=== PATIENT | male | born 1980 | race Caucasian/White ===

== ENCOUNTER 2017-01-05 05:18 | Emergency (ER) | payer MEDICARE, MEDICAID ==
[2017-01-05] MEDS ORDERED: Ondansetron INJ* 2 MG/ML VIAL IV ONE (05:41)
[2017-01-05] MEDS ORDERED: Morphine INJ* 4 MG/ML 1 ML CARPUJECT IV ONE (05:41)
[2017-01-05] MEDS ORDERED: NS 0.9% 1000 ML* 1,000 ML IV ONE (05:41)
[2017-01-05] MEDS: NS 0.9% 1000 ML* 1,000 ML IV ONE ×2 (06:08→07:00)
[2017-01-05 06:22] LABS: Hematocrit 47 % (42-52); Hemoglobin 15.9 g/dl (14.0-18.0); Mean Corpuscular HGB Conc 34 g/dl (31-36); Mean Corpuscular Hemoglobin 32 pg (27-31); Mean Corpuscular Volume 94 fL (80-94); Mean Platelet Volume 8 um3 (7.4-10.4); Red Blood Count 4.99 10^6/ul (4.0-5.4); Red Cell Distribution Width 15 % (10.5-15); White Blood Count 12.1 10^3/ul (3.5-10.8)
[2017-01-05 06:39] LABS: Albumin 4.4 g/dL (3.2-5.2); BUN/Creatinine Ratio 26.1 (8-20); Calcium 9.7 mg/dL (8.6-10.3); Globulin 2.8 g/dL (2-4); Potassium 4.1 mmol/L (3.5-5.0); Total Bilirubin 0.5 mg/dL (0.2-1.0); Total Protein 7.2 g/dL (6.4-8.9)
[2017-01-05 06:42] LABS: Urine Bilirubin Negative (Negative); Urine Glucose Negative (Negative); Urine Nitrite Negative (Negative)
--- NOTE | 2017-01-05 06:44 | ED ---
Eliezer Li Salem, scribed for Afshin Merchant on 01/05/17 at 0602 . Abdominal Pain/Male - HPI Summary HPI Summary: Patient is a 36 y/o male who presents to the ED for abdominal pain in LLQ since yesterday. He reports vomiting (around 5 times) and diarrhea (3-4 times) this morning. He describes his sx as similar to those he experienced when he had a bacterial infection 3 months ago. PMHx significant for renal calculi. Pt smokes Tobacco and THC, but does not consume EtOH. - History of Current Complaint Chief Complaint: EDNauseaVomitDiarrh Stated Complaint: VOMITING/DIARRHEA Time Seen by Provider: 01/05/17 05:37 Hx Obtained From: Patient Onset/Duration: Gradual Onset, Lasting Hours Severity Initially: Moderate Severity Currently: Moderate Pain Intensity: 8 Pain Scale Used: 0-10 Numeric Location: Discrete At: LLQ Aggravating Factor(s): Nothing Alleviating Factor(s): Nothing Associated Signs And Symptoms: Positive: Vomiting, Diarrhea - Allergies/Home Medications Allergies/Adverse Reactions: Allergies Allergy/AdvReac Type Severity Reaction Status Date / Time Penicillins [PCN] Allergy Rash And Verified 01/05/17 05:25 Itching PMH/Surg Hx/FS Hx/Imm Hx History: Reports: Hx Kidney Stones Infectious Disease History: No Infectious Disease History: Denies: Traveled Outside the [place] in Last 30 Days - Family History Known Family History: Negative: Hypertension, Diabetes - Social History Alcohol Use: None Hx Substance Use: Yes Substance Use Type: Reports: Marijuana Hx Tobacco Use: Yes Review of Systems Negative: Fever Positive: Abdominal Pain, Vomiting, Diarrhea All Other Systems Reviewed And Are Negative: Yes Physical Exam Triage Information Reviewed: Yes Vital Signs On Initial Exam: Initial Vitals Temp Pulse Resp BP Pulse Ox 98.2 F 82 16 145/96 100 01/05/17 05:20 01/05/17 05:20 01/05/17 05:20 01/05/17 05:20 01/05/17 05:20 Vital Signs Reviewed: Yes Appearance: Positive: Well-Appearing, No Pain Distress Skin: Positive: Warm, Skin Color Reflects Adequate Perfusion, Dry Head/Face: Positive: Normal Head/Face Inspection Eyes: Positive: EOMI, BY[place] Neck: Positive: Supple, Nontender Respiratory/Lung Sounds: Positive: Clear to Auscultation, Breath Sounds Present Cardiovascular: Positive: RRR, Pulses are Symmetrical in both Upper and Lower Extremities Abdomen Description: Positive: Other: - LLQ tenderness. Bowel Sounds: Positive: Present Musculoskeletal: Positive: Normal, Strength/ROM Intact Neurological: Positive: Normal, Sensory/Motor Intact, Alert, Oriented to Person Place, Time Diagnostics - Vital Signs Vital Signs Temp Pulse Resp BP Pulse Ox 01/05/17 05:20 98.2 F 82 16 145/96 100 - Laboratory Lab Results: Lab Results 01/05/17 01/05/17 01/05/17 Range/Units 06:00 06:00 06:00 WBC 12.1 H (3.5-10.8) 10^3/ul RBC 4.99 (4.0-5.4) 10^6/ul Hgb 15.9 (14.0-18.0) g/dl Hct 47 (42-52) % MCV 94 (80-94) fL MCH 32 H (27-31) pg MCHC 34 (31-36) g/dl RDW 15 (10.5-15) % Plt Count 209 (150-450) 10^3/ul MPV 8 (7.4-10.4) um3 Neut % (Auto) 72.9 (38-83) % Lymph % (Auto) 14.0 L (25-47) % [place] % (Auto) 10.5 H (1-9) % Eos % (Auto) 2.2 (0-6) % Baso % (Auto) 0.4 (0-2) % Absolute Neuts (auto) 8.8 H (1.5-7.7) 10^3/ul Absolute Lymphs (auto) 1.7 (1.0-4.8) 10^3/ul Absolute Monos (auto) 1.3 H (0-0.8) 10^3/ul Absolute Eos (auto) 0.3 (0-0.6) 10^3/ul Absolute Basos (auto) 0 (0-0.2) 10^3/ul Absolute Nucleated RBC 0 10^3/ul Nucleated RBC % 0 INR (Anticoag Therapy) 0.87 L (0.89-1.11) APTT 29.2 (26.0-36.3) seconds Sodium 137 (133-145) mmol/L Potassium 4.1 (3.5-5.0) mmol/L Chloride 105 (101-111) mmol/L Carbon Dioxide 24 (22-32) mmol/L Anion Gap 8 (2-11) mmol/L BUN 23 (6-24) mg/dL Creatinine 0.88 (0.67-1.17) mg/dL Est GFR ( Amer) 126.0 (>60) Est GFR (Non-Af Amer) 98.0 (>60) BUN/Creatinine Ratio 26.1 H (8-20) Glucose 101 H (70-100) mg/dL Calcium 9.7 (8.6-10.3) mg/dL Total Bilirubin 0.50 (0.2-1.0) mg/dL AST 28 (13-39) U/L ALT 21 (7-52) U/L Alkaline Phosphatase 40 (34-104) U/L Troponin I 0.00 (<0.04) ng/mL Total Protein 7.2 (6.4-8.9) g/dL Albumin 4.4 (3.2-5.2) g/dL Globulin 2.8 (2-4) g/dL Albumin/Globulin Ratio 1.6 (1-3) Lipase 17 (11.0-82.0) U/L Result Diagrams: 01/05/17 06:00 01/05/17 06:00 Lab Statement: Any lab studies that have been ordered have been reviewed, and results considered in the medical decision making process. Abdominal Pain Fem Course/Dx - Diagnoses Provider Diagnoses: Abdominal pain Discharge - Discharge Plan Condition: Stable Disposition: OTHER Discharge Disposition Comment: signed out to dr oh The documentation as recorded by the Eliezer parada Salem accurately reflects the service I personally performed and the decisions made by Mayur aldridge Emmanuel.
[2017-01-05] MEDS ORDERED: Iohexol 300* (CONTRAST) 10 ML SDV IV ONE (07:05)
--- NOTE | 2017-01-05 08:33 | RAD ---
INDICATION: Diverticulitis COMPARISON: None TECHNIQUE: Axial source images were obtained from the hemidiaphragms to the symphysis pubis following administration of oral and intravenous contrast. 91 mL Omnipaque 300 was utilized. Coronal and sagittal reconstructed images were acquired. Lung bases: Mild bibasilar atelectasis regular left. Liver: The liver is normal in size. There are no masses. There is no ductal dilatation. Gallbladder: There are no calcified gallstones. There is no evidence of wall thickening or pericholecystic fluid. Spleen: The spleen is normal in size. There are no masses. Pancreas: There is no focal pancreatic mass or ductal dilatation. Adrenal glands: There is no evidence of adrenal mass. Kidneys: The kidneys are normal in size and position. There are prompt nephrograms and there is prompt excretion bilaterally. There are no renal parenchymal masses. There is a nonobstructive, 2 mm, left renal calculus. Adenopathy: There is no evidence of adenopathy by size criteria. Fluid collections: There are no free or localized fluid collections. Vessels:There are no significant atherosclerotic changes involving the aorta. There is no focal aneurysm. The iliac vessels are normal in caliber. The IVC appears normal. GI tract: The upper GI tract is unremarkable. The colon is nondistended. There are scant diverticula but no CT evidence of acute diverticulitis. The transverse colonic mucosa appears mildly prominent but this may be related to lack of distention. Pelvic organs: The prostate and seminal vesicles appear normal Bladder: There are no bladder masses. Abdominal and pelvic soft tissues: The extraperitoneal abdominal and pelvic soft tissues appear normal.. Osseous structures: There are no acute osseous findings. Other: None IMPRESSION: 1. APPARENT MILD MUCOSAL THICKENING OF THE TRANSVERSE COLON COULD BE RELATED TO MILD COLITIS BUT MAY ALSO BE RELATED TO LACK OF DISTENTION. 2. SCANT DIVERTICULA BUT NO CT EVIDENCE OF ACUTE DIVERTICULITIS. 3. NONOBSTRUCTIVE 2 MM LEFT RENAL CALCULUS 4. NO ADDITIONAL SIGNIFICANT FINDINGS.
[2017-01-05 09:12] VITALS: BP 147/88
--- NOTE | 2017-01-05 09:40 | CONSULT ---
Consult Consult: Bonny Chase was turned over to me at change of shift after presenting with N /V/D and LLQ pain. He was pending CT of the abdomen which came back with a likely diagnosis of colitis which was consistent with his presentation. He had had a very bad episode of colitis 3 months ago for which he was hospitalized elsewhere but he reported that he wasn't diagnosed with Crohn's or UC. His stool was sent to the lab but he was wanting to go home and take antibiotics and pain meds and F/U with [facility]. He was D/C'd to home with a diagnosis of colitis in stable condition.
== END 2017-01-05 09:17 | disposition home or self-care (01) ==
LOC: ED 05:18
DX: R10.32 Left lower quadrant pain (principal); R19.7 Diarrhea, unspecified; R11.10 Vomiting, unspecified
CPT/HCPCS: 36415; 74177; 80053; 81003; 82272; 83630; 83690; 84484; 85025; 85610; 85730; 87045; 87046; 87493; 87899; 96374; 96375; 99283; J2270; J2405; Q9967

== ENCOUNTER 2018-02-02 18:26 | Emergency (ER) | payer MEDICARE, MEDICAID ==
--- OUTSIDE RECORDS SUMMARY | 2018-02-02 19:06 | XMS REPORT ---
:1980 External Reference #:[id number] Author Organization [facility] Address [address] [place] [address] Phone [phone] Care Team Providers Name Role Phone HCP given Primary Care Physician Unavailable Payers Type Date Identification Numbers Payment Provider Subscriber Medicare Primary Policy Number: [id number] [facility] Bonny Massey Services PayID: [id number] [facility] [address] [place] [address] Part B Policy Number: [id number] Medicaid Bonny Massey PayID: [id number] [address] [place] [address] Problems Description No Information Family History Date Family Member(s) Problem(s) Comments Father Alcoholism Mother Alcoholism Mother Diabetes, Nos Mother Emotional Problems Mother High Blood Pressure Mother Mental Illness Children 8 Social History Type Date Description Comments Education High School Completed Marital Status Occupation [employer] Work Status Not Currently Working Cigarette Use Current Cigarette Smoker 1 Pack Daily ETOH Use Denies alcohol use Recreational Drug Use Current Drug User recreational Daily Caffeine Consumes on average 2 cups of coffee per day Exercise Type/Frequency Exercises rarely Sun Exposure Does not use sunscreen Seat Belt/Car Seat Seat Belt Use - Yes Currently Active Patient is currently sexually active Contraceptive Methods None # Partners in a Lifetime Partners 1-5 Sexual Hx text Heterosexual Allergies, Adverse Reactions, Alerts Date Description Reaction Status Severity Comments 12/10/2016 Penicillins active rash, swelling Medications Medication Date Status Form Strength Qnty SIG Indications Ordering Provider [place] 12/11/ Active Tablets 5-325mg 45tabs take 1 tablet N20.0 Adis2016 by mouth Mohit, every 6 hours D.O. as needed for pain Tamsulosin 12/10/ Active Capsules 0.4mg 30caps 1 by mouth N20.0 [place] , HCL 2016 every day Mohit, D.O. Ondansetron 12/10/ Active Tablets 4mg 30tabs 1 by mouth N20.0 [place], HCL 2016 three times a Mohit, day as needed D.O. for nausea Naproxen 12/10/ Active Tablets 500mg 60tabs 1 by mouth N20.0 [place], 2016 twice a day Mohit, w/ food D.O. Tamiflu 01/03/ Hx Capsules 75mg 10caps take 1 Adis 2017 - capsule by Mohit, 01/13/ mouth once D.O. 2018 per day for 10 days for flu prophylaxis No Active 12/10/ Hx Unknown Medications 2016 - 2016 Vital Signs Date Vital Result Comment 01/21/2018 BP Systolic 136 mmHg BP Diastolic 86 mmHg Weight 175.00 lb 12/10/2016 BP Systolic 140 mmHg BP Diastolic 80 mmHg Body Temperature 98.1 F Height 66.75 inches 5'6.75" Weight 163.00 lb BMI (Body Mass Index) 25.7 kg/m2 Results Test Date Test Result H/L Range Note Laboratory test finding 01/23/2018 Stool Culture <pending> O&P Ova & Parasites Screen <pending> C Difficile B PCR <pending> Celiac Panel 01/23/2018 Tissue Transglutaminase IgA Ab <1.2 U/mL 1 Immunoglobulin A 214 mg/dL 61 - 356 Celiac Interpretation See Comment 2 Laboratory test finding 01/23/2018 Stool Calprotectin <pending> [place] Pylori Antigen- Stool <pending> CBC Auto Diff 01/23/2018 White Blood Count 6.7 10^3/uL 3.5-10.8 Red Blood Count 4.96 10^6/uL 4.0-5.4 Hemoglobin 15.9 g/dL 14.0-18.0 Hematocrit 47 % 42-52 Mean Corpuscular Volume 94 fL 80-94 Mean Corpuscular Hemoglobin 32 pg High 27-31 Mean Corpuscular HGB Conc 34 g/dL 31-36 Red Cell Distribution Width 14 % 10.5-15 Platelet Count 262 10^3/uL 150-450 Mean Platelet Volume 8 um3 7.4-10.4 Abs Neutrophils 3.3 10^3/uL 1.5-7.7 Abs Lymphocytes 2.3 10^3/uL 1.0-4.8 Abs Monocytes 0.8 10^3/uL 0-0.8 Abs Eosinophils 0.3 10^3/uL 0-0.6 Abs Basophils 0 10^3/uL 0-0.2 Abs Nucleated RBC 0 10^3/uL Granulocyte % 49.4 % 38-83 Lymphocyte % 34.6 % 25-47 Monocyte % 11.5 % High 0-7 Eosinophil % 3.9 % 0-6 Basophil % 0.6 % 0-2 Nucleated Red Blood Cells % 0 Comp Metabolic Panel 01/23/2018 Sodium 138 mmol/L 133-145 Potassium 4.1 mmol/L 3.5-5.0 Chloride 106 mmol/L 101-111 Co2 Carbon Dioxide 26 mmol/L 22-32 Anion Gap 6 mmol/L 2-11 Glucose 108 mg/dL High 70-100 Blood Urea Nitrogen 16 mg/dL 6-24 Creatinine 0.96 mg/dL 0.67-1.17 BUN/Creatinine Ratio 16.7 8-20 Calcium 9.4 mg/dL 8.6-10.3 Total Protein 6.6 g/dL 6.4-8.9 Albumin 4.3 g/dL 3.2-5.2 Globulin 2.3 g/dL 2-4 Albumin/Globulin Ratio 1.9 1-3 Total Bilirubin 0.30 mg/dL 0.2-1.0 Alkaline Phosphatase 38 U/L 34-104 Alt 34 U/L 7-52 Ast 19 U/L 13-39 Egfr Non- 88.1 >60 Egfr 113.3 >60 3 Ua Inhouse 01/21/2018 Ua Specific [place] 1.005 Ua PH 6.0 Laboratory test finding 01/05/2017 Stool For Blood SEE RESULT BELOW 4 C Difficile B PCR SEE RESULT BELOW 5 Urine Micro Inhouse 12/10/2016 Ua WBC - 6 Ua RBC 2- 3 6 Ua Casts - 6 Ua Epi - 6 Ua Other - 6 Ua Glucose - 6 Ua Bilirubin - 6 Ua Ketones - 6 Ua Specific [place] 1.030 6 Ua Blood - 6 Ua PH 6.0 6 Ua Protein tr 6 Ua Urobilinogen - 6 Ua Nitrite - 6 Ua Leukocytes - 6 Culture Urine Inhouse 12/10/2016 Colonies negative 6 1 REFERENCE VALUE <4.0 (Negative) Test Performed by: [facility] [place] [id number] 2 Negative serology. Celiac disease unlikely. However, approximately 10% of patients with celiac disease are seronegative. Also, patients who are already adhering to a gluten-free diet may be seronegative. If celiac disease is highly clinically suspected, consider HLA-DQ typing. Test Performed by: [place] [id number] 3 Because ethnic data is not always readily available, this report includes an eGFR for both -Americans and non- Americans. The National Kidney Disease Education Program (NKDEP) does not endorse the use of the MDRD equation for patients that are not between the ages of 18 and 70, are , have extremes of body size, muscle mass, or nutritional status, or are non- or non-. According to the National Kidney Foundation, irrespective of diagnosis, the stage of the disease is based on the level of kidney function: Stage Description GFR(mL/min/1.73 m(2)) 1 Kidney damage with normal or decreased GFR 90 2 Kidney damage with mild decrease in GFR 60-89 3 Moderate decrease in GFR 30-59 4 Severe decrease in GFR 15-29 5 Kidney failure <15 (or dialysis) 4 SEE RESULT BELOW Name: CHRISTOPHER MASSEYZAFAREden : [address]: Rylan Dwyer MD Acct: [id number] Unit: [id number] AGE: 36 Location: ED Re01/05/17 SEX: M Status: DEP ER SPEC: [id number] GAYATRI: 01/05/17 [facility] [address]: Rylan Dwyer MD REQ: [id number] RECD: 01/05/17 STATUS: ADDISON LUBIN DR: Afshin Arceo DO _ SOURCE: STOOL SPDESC: ORDERED: Hemoccult, Stool Culture Procedure Result Reported Site Stool Culture Final 01/07/17- 0946 ML Result No enteric pathogens isolated Testing for Salmonella, Shigella, Aeromonas, Plesiomonas, Yersinia and Campylobacter are included in a Stool Culture. Vibrio spp not routinely tested for in a stool culture. If testing is desired, please request specifically when placing test order. Sensitivities not routinely performed on stool isolates, as antibiotics may prolong the carriage rate of bacteria. Please contact the microbiology lab if sensitivities are required. Stool Specimen Description Final 01/05/17- 0930 ML Stool Color Brown Stool Form Nonformed Stool Consistency Liquid Shiga Toxin 1 2 Final 01/07/17- 1236 ML Organism 1 Negative Shiga Toxin 1 2 Immunochromatographic Assay CONTINUED ON NEXT PAGE * ML=Testing performed at Main Lab DEPARTMENT OF PATHOLOGY, [address] [place] [address] Artemio Franco M.D. Director [facility] # [id number] Patient: BONNY MASSEY [id number] (Continued) Specimen: [id number] Collected: 01/05/17 Received: 01/05/17 (Continued) Procedure Result Reported Site Shiga Toxin 1 2 Final (continued) 01/07/17- 1236 Stool Occult Blood Final 01/05/17- 929 ML Stool Occult Blood Positive * ML - MAIN LAB ([facility]) . END OF REPORT * ML=Testing performed at Main Lab DEPARTMENT OF PATHOLOGY, [address] [place] [address] Artemio Franco M.D. Director [facility] # [id number] 5 SEE RESULT BELOW Name: BONNY MASSEY : [address]: Rylan Dwyer MD Acct: [id number] Unit: [id number] AGE: 36 Location: ED Re01/05/17 SEX: M Status: DEP ER SPEC: [id number] GAYATRI: 01/05/17 [facility] [address]: Rylan Dwyer MD REQ: [id number] RECD: 01/05/17 STATUS: ADDISON [facility] DR: Afshin Arceo DO _ SOURCE: [facility]: ORDERED: C. diff PCR, Fecal Lactoferr Procedure Result Reported Site Stool Specimen Description Final 01/05/17- 930 ML Stool Color Brown Stool Form Nonformed Stool Consistency Liquid C. difficile PCR Final 01/05/17- 1009 ML Organism 1 027 Presumptive NEGATIVE Organism 2 Toxigenic C.diff POSITIVE Fecal Lactoferrin (Stool WBC) Final 01/05/1731 ML Fecal Lactoferrin Positive by Immunoassay TEST LIMITATIONS: Assay detects elevated levels of lactoferrin released from fecal leukocytes as a marker of intestinal inflammation. The test may not be appropriate in immunocompromised persons. Fecal samples from breast fed infants should not be used with this assay. * ML - MAIN LAB ([facility]) . END OF REPORT * ML=Testing performed at Main Lab DEPARTMENT OF PATHOLOGY, [address] [place] [address] Artemio Franco M.D. Director [facility] # [id number] 6 void, clear, yellow Procedures Date CPT Code Description Status 01/21/2018 88628 X-Ray Hand Three Or More Views Completed 01/21/2018 97671 X-Ray Hand Three Or More Views Completed Encounters Type Date Location Provider CPT E/M Dx Office Visit 01/21/2018 2:20p Main Office Trish Serrano PSanjuanita 62442 M25.541 M79.644 K21.9 R19.7 R11.10 R30.0 M54.5 N20.0 Office Visit 12/10/2016 1:30p Main Office Mohit Arceo D.O. 29504 N20.0 M54.5 R30.0 Plan of Care Future Appointment(s):02/11/2018 9:20 am - Trish Serrano PSanjuanita at Main [id number] - Trish Serrano PSanjuanitaM25.541 Pain in joints of right handFollow up:3 dwtxrN75.644 Pain in right finger(s)K21.9 Gastro-esophageal reflux disease without esophagitisReferral:[facility] [place], WghqtlmbzeaymbmtQ83.7 Diarrhea, coqsvkwmfiuD50.10 Vomiting, dbyvfsayomhQ72.0 WgvxgtgE71.5 Low back painN20.0 Calculus of kidney
[2018-02-02] MEDS ORDERED: Morphine INJ* 10 MG/ML 1 ML CARPUJECT IV ONE (22:05)
[2018-02-02 22:35] LABS: ABS Basophils 0 10^3/ul (0-0.2); ABS Eosinophils 0.2 10^3/ul (0-0.6); ABS Neutrophils 6.6 10^3/ul (1.5-7.7); ABS Nucleated RBC 0 10^3/ul; Hematocrit 48 % (42-52); Hemoglobin 16.3 g/dl (14.0-18.0); Lymphocyte % 27.8 % (25-47); Mean Corpuscular HGB Conc 34 g/dl (31-36); Mean Corpuscular Hemoglobin 32 pg (27-31); Mean Corpuscular Volume 95 fL (80-94); Mean Platelet Volume 8.1 um3 (7.4-10.4); Nucleated Red Blood Cells % 0; Platelet Count 272 10^3/ul (150-450); Red Blood Count 5.02 10^6/ul (4.0-5.4); Red Cell Distribution Width 14 % (10.5-15); White Blood Count 10.9 10^3/ul (3.5-10.8)
[2018-02-02] MEDS ORDERED: Ondansetron INJ* 2 MG/ML VIAL IV ONE (22:37)
[2018-02-02] MEDS ORDERED: Ondansetron INJ* 2 MG/ML VIAL ONE (22:39)
[2018-02-02 22:43] LABS: INR 0.96 (0.77-1.02)
[2018-02-02 22:46] LABS: EGFR Non-African American 79.5 (>60)
[2018-02-02 23:56] LABS: Urine Appearance Clear; Urine Blood Negative (Negative); Urine Color Yellow; Urine Ketones 1+ (Negative); Urine Protein 2+(100 mg/dL) (Negative); Urine Specific Gravity 1.027 (1.010-1.030); Urine Urobilinogen Negative (Negative)
[2018-02-03] MEDS ORDERED: Iohexol 300* (CONTRAST) 10 ML SDV IV ONE (00:50)
[2018-02-03] MEDS ORDERED: Morphine INJ* 4 MG/ML 1 ML SYRINGE (NEW SYRINGE VERSION) IV ONE (02:15)
[2018-02-03 02:34] VITALS: BP 137/91
--- NOTE | 2018-02-03 02:45 | ED ---
Anmol Li Nikita, scribed for Gerardo Thornton MD on 02/02/18 at 2155 . Abdominal Pain/Male - HPI Summary HPI Summary: This patient is a 37 year old M presenting to ED with a chief complaint of lower abdominal pain since 173. The CC is described as burning. The patient rates the pain 6/10 in severity. Symptoms aggravated by nothing. Symptoms alleviated by nothing. Patient reports diarrhea (intermittent since 3 weeks ago , no blood) and vomiting. Patient denies urinary problems. Similar episode couple weeks ago. PMHx of ulcers, GERD, kidney stones, and colitis. Denies past abdominal surgeries. - History of Current Complaint Chief Complaint: EDAbdPain Stated Complaint: FLANK/ABD PAIN Hx Obtained From: Patient Onset/Duration: Sudden Onset, Lasting Hours, Still Present Timing: Constant, Lasting Hours Severity Initially: Moderate Severity Currently: Moderate Pain Intensity: 6 Pain Scale Used: 0-10 Numeric Location: Suprapubic Radiates: No Character: Burning Aggravating Factor(s): Nothing Alleviating Factor(s): Nothing Associated Signs And Symptoms: Positive: Other - Patient reports diarrhea ( intermittent since 3 weeks ago, no blood) and vomiting. Patient denies urinary problems. - Allergies/Home Medications Allergies/Adverse Reactions: Allergies Allergy/AdvReac Type Severity Reaction Status Date / Time MS Penicillins [PCN] Allergy Rash And Verified 02/02/18 18:58 Itching PMH/Surg Hx/FS Hx/Imm Hx Endocrine/Hematology History: Denies: Hx Diabetes Cardiovascular History: Denies: Hx Hypertension History: Reports: Hx Kidney Stones Denies: Hx Dialysis, Hx Renal Disease Infectious Disease History: No Infectious Disease History: Denies: Traveled Outside the [place] in Last 30 Days - Family History Known Family History: Negative: Hypertension, Diabetes - Social History Alcohol Use: None Hx Substance Use: Yes Substance Use Type: Reports: Marijuana Hx Tobacco Use: Yes Smoking Status (MU): Light Every Day Tobacco Smoker Review of Systems Positive: Abdominal Pain - suprapubic, Vomiting, Diarrhea - intermittent since 3 weeks ago, no blood Positive: no symptoms reported All Other Systems Reviewed And Are Negative: Yes Physical Exam - Summary Physical Exam Summary: Appearance: Well-appearing, Well-nourished Skin: Warm, no skin changes Eyes: Normal ENT: Normal Neck: Supple, nontender Respiratory: Clear to auscultation Cardiovascular: Normal S1, S2. No murmurs. Normal distal pulses in tibial and radial bilaterally. Abdomen: Soft, Tenderness to suprapubic region and LLQ, normal bowel sounds Musculoskeletal: Normal, Strength/ROM Intact Neurological: Normal, A&Ox3 Psychiatric: Normal General: No acute distress Triage Information Reviewed: Yes Vital Signs On Initial Exam: Initial Vitals Temp Pulse Resp BP Pulse Ox 98.1 F 81 19 160/99 97 02/02/18 18:55 02/02/18 18:55 02/02/18 18:55 02/02/18 18:55 02/02/18 18:55 Vital Signs Reviewed: Yes Diagnostics - Vital Signs Vital Signs Temp Pulse Resp BP Pulse Ox 02/02/18 18:55 98.1 F 81 19 160/99 97 - Laboratory Lab Results: Lab Results 02/02/18 02/02/18 02/02/18 Range/Units 20:40 20:40 20:40 WBC 10.9 H (3.5-10.8) 10^3/ul RBC 5.02 (4.0-5.4) 10^6/ul Hgb 16.3 (14.0-18.0) g/dl Hct 48 (42-52) % MCV 95 H (80-94) fL MCH 32 H (27-31) pg MCHC 34 (31-36) g/dl RDW 14 (10.5-15) % Plt Count 272 (150-450) 10^3/ul MPV 8.1 (7.4-10.4) um3 Neut % (Auto) 60.6 (38-83) % Lymph % (Auto) 27.8 (25-47) % Benzie % (Auto) 9.2 H (0-7) % Eos % (Auto) 2.0 (0-6) % Baso % (Auto) 0.4 (0-2) % Absolute Neuts (auto) 6.6 (1.5-7.7) 10^3/ul Absolute Lymphs (auto) 3.0 (1.0-4.8) 10^3/ul Absolute Monos (auto) 1.0 H (0-0.8) 10^3/ul Absolute Eos (auto) 0.2 (0-0.6) 10^3/ul Absolute Basos (auto) 0 (0-0.2) 10^3/ul Absolute Nucleated RBC 0 10^3/ul Nucleated RBC % 0 INR (Anticoag Therapy) 0.96 (0.77-1.02) APTT 31.7 (26.0-36.3) seconds Sodium 138 (133-145) mmol/L Potassium 3.7 (3.5-5.0) mmol/L Chloride 102 (101-111) mmol/L Carbon Dioxide 26 (22-32) mmol/L Anion Gap 10 (2-11) mmol/L BUN 12 (6-24) mg/dL Creatinine 1.05 (0.67-1.17) mg/dL Est GFR ( Amer) 102.2 (>60) Est GFR (Non-Af Amer) 79.5 (>60) BUN/Creatinine Ratio 11.4 (8-20) Glucose 90 (70-100) mg/dL Lactic Acid (0.5-2.0) mmol/L Calcium 9.9 (8.6-10.3) mg/dL Magnesium 2.0 (1.9-2.7) mg/dL Total Bilirubin 0.50 (0.2-1.0) mg/dL AST 22 (13-39) U/L ALT 30 (7-52) U/L Alkaline Phosphatase 44 (34-104) U/L C-Reactive Protein 1.36 (< 5.00) mg/L Total Protein 7.7 (6.4-8.9) g/dL Albumin 4.7 (3.2-5.2) g/dL Globulin 3.0 (2-4) g/dL Albumin/Globulin Ratio 1.6 (1-3) Amylase 34 (29-103) U/L Lipase 22 (11.0-82.0) U/L Urine Color Urine Appearance Urine pH (5-9) Ur Specific [place] (1.010-1.030) Urine Protein (Negative) Urine Ketones (Negative) Urine Blood (Negative) Urine Nitrate (Negative) Urine Bilirubin (Negative) Urine Urobilinogen (Negative) Ur Leukocyte Esterase (Negative) Urine WBC (Auto) (Absent) Urine RBC (Auto) (Absent) Urine Bacteria (Absent) Urine Glucose (Negative) 02/02/18 02/02/18 Range/Units 22:44 23:21 WBC (3.5-10.8) 10^3/ul RBC (4.0-5.4) 10^6/ul Hgb (14.0-18.0) g/dl Hct (42-52) % MCV (80-94) fL MCH (27-31) pg MCHC (31-36) g/dl RDW (10.5-15) % Plt Count (150-450) 10^3/ul MPV (7.4-10.4) um3 Neut % (Auto) (38-83) % Lymph % (Auto) (25-47) % Benzie % (Auto) (0-7) % Eos % (Auto) (0-6) % Baso % (Auto) (0-2) % Absolute Neuts (auto) (1.5-7.7) 10^3/ul Absolute Lymphs (auto) (1.0-4.8) 10^3/ul Absolute Monos (auto) (0-0.8) 10^3/ul Absolute Eos (auto) (0-0.6) 10^3/ul Absolute Basos (auto) (0-0.2) 10^3/ul Absolute Nucleated RBC 10^3/ul Nucleated RBC % INR (Anticoag Therapy) (0.77-1.02) APTT (26.0-36.3) seconds Sodium (133-145) mmol/L Potassium (3.5-5.0) mmol/L Chloride (101-111) mmol/L Carbon Dioxide (22-32) mmol/L Anion Gap (2-11) mmol/L BUN (6-24) mg/dL Creatinine (0.67-1.17) mg/dL Est GFR ( Amer) (>60) Est GFR (Non-Af Amer) (>60) BUN/Creatinine Ratio (8-20) Glucose (70-100) mg/dL Lactic Acid 0.7 (0.5-2.0) mmol/L Calcium (8.6-10.3) mg/dL Magnesium (1.9-2.7) mg/dL Total Bilirubin (0.2-1.0) mg/dL AST (13-39) U/L ALT (7-52) U/L Alkaline Phosphatase (34-104) U/L C-Reactive Protein (< 5.00) mg/L Total Protein (6.4-8.9) g/dL Albumin (3.2-5.2) g/dL Globulin (2-4) g/dL Albumin/Globulin Ratio (1-3) Amylase (29-103) U/L Lipase (11.0-82.0) U/L Urine Color Yellow Urine Appearance Clear Urine pH 5.0 (5-9) Ur Specific [place] 1.027 (1.010-1.030) Urine Protein 2+(100 mg/dl) A (Negative) Urine Ketones 1+ A (Negative) Urine Blood Negative (Negative) Urine Nitrate Negative (Negative) Urine Bilirubin Negative (Negative) Urine Urobilinogen Negative (Negative) Ur Leukocyte Esterase Negative (Negative) Urine WBC (Auto) Trace(0-5/hpf) (Absent) Urine RBC (Auto) 2+(6-10/hpf) A (Absent) Urine Bacteria Absent (Absent) Urine Glucose Negative (Negative) Result Diagrams: 02/02/18 20:40 02/02/18 20:40 Lab Statement: Any lab studies that have been ordered have been reviewed, and results considered in the medical decision making process. - CT abd/pel CT Interpretation Completed By: Radiologist - Small nonobstructing left renal stone. No definite evidence of acute pathology. ED physician has reviewed this radiology report. - EKG 2221 Cardiac Rate: NL EKG Rhythm: Sinus Rhythm - An EKG reveals NSR (71 BPM), No ischemic ST changes, no ectopy. Abdominal Pain Fem Course/Dx - Course Assessment/Plan: Pt says the pain is consistent with prior kidney stones. No evidence of obstruction or infection on today's results. Pt says he feels comfortable managing the pain at home. He was also instructed to follow up with a urologist as soon as possible and to return to the ED for any worsening or concerning symptoms. Pt agrees to and understands discharge instructions. - Diagnoses Differential Diagnosis/HQI/PQRI: Other - kidney stone Provider Diagnoses: Kidney stone Discharge - Sign-Out/Discharge Documenting (check all that apply): Discharge - Discharge Plan Condition: Improved Disposition: HOME Prescriptions: Hydrocodone/Acetaminophen [Vicodin 5-300 mg Tablet] 1 each PO Q6H PRN #12 tablet MDD 4 tabs PRN Reason: Pain - Severe Patient Education Materials: Kidney Stones (ED) Referrals: Mohit Arceo DO [Primary Care Provider] - Gerardo Ferguson MD [Medical Doctor] - Additional Instructions: PLEASE TAKE MEDICATIONS DIRECTED PLEASE MAKE AN APPOINTMENT FIRST THING IN THE MORNING TO BE SEEN BY A UROLOGIST WITHIN 1-3 DAYS PLEASE RETURN IMMEDIATELY TO THE ER IF YOU HAVE ANY WORSENING OR CONCERNING SYMPTOMS PLEASE MAKE AN APPOINTMENT TO BE SEEN BY YOUR PRIMARY CARE DOCTOR WITHIN 1 WEEK - Billing Disposition and Condition Condition: IMPROVED Disposition: HOME The documentation as recorded by the Anmol parada Nikita accurately reflects the service I personally performed and the decisions made by me, Gerardo Thornton MD.
--- NOTE | 2018-02-03 08:09 | RAD ---
CLINICAL HISTORY: Left lower quadrant pain COMPARISON: January 05, 2017 TECHNIQUE: Multiple contiguous axial CT scans were obtained of the abdomen and pelvis after the administration of intravenous contrast. Coronal and sagittal multiplanar reformations are submitted for review. Oral contrast was administered. Delayed images were obtained through the abdomen and pelvis. FINDINGS: LUNG BASES: The lung bases are clear. LIVER: The liver is diffusely low in attenuation compared to the spleen. There are scattered low-attenuation lesions that are 2 small definitively characterize but likely represent small cysts versus hemangiomas.. BILE DUCTS: There is no intrahepatic or extrahepatic biliary dilatation. GALLBLADDER: The gallbladder is normal, without pericholecystic inflammatory change. PANCREAS: The pancreas is normal, without mass or ductal dilatation. SPLEEN: Normal in size and appearance. UPPER GI TRACT: Evaluation of the gastrointestinal tract is limited by incomplete gastric distention. The upper GI tract is unremarkable. SMALL BOWEL AND MESENTERY: The small bowel is normal in contour, course, and caliber. There is no obstruction or dilatation. COLON: There is focal circumferential thickening and narrowing of the lumen of the rectum on axial image 76. There is no obstruction. There is no pericolonic inflammatory change. ADRENALS: Normal bilaterally. KIDNEYS: There is high attenuation in the upper pole left kidney measuring 0.7 cm in size. There is no hydronephrosis. There is a simple cyst of the upper pole of the left kidney measuring 1.3 cm in size. BLADDER: The bladder is collapsed and is not well evaluated. PELVIC ORGANS: The prostate gland is normal. The seminal vesicles are symmetric. AORTA: The aorta is normal. IVC: Unremarkable LYMPH NODES: There is no lymphadenopathy by size criteria. ABDOMINAL WALL: There is no evidence for abdominal wall hernia. BONES AND SOFT TISSUES: The bones and soft tissues are unremarkable. OTHER: None IMPRESSION: 1. THERE IS FOCAL NARROWING OF THE LUMEN OF THE RECTUM WITH MUCOSAL THICKENING. WHILE THIS MAY BE AN ARTIFACT OF PERISTALSIS, COLONIC MUCOSAL NEOPLASM MAY GIVE A SIMILAR APPEARANCE. RECOMMEND CONSIDERATION OF CORRELATION WITH DIRECT VISUALIZATION. 2. THERE IS NO OBSTRUCTION. 3. FATTY INFILTRATION OF THE LIVER. 4. HIGH ATTENUATION MATERIAL WITHIN THE UPPER POLE OF LEFT KIDNEY WHICH MAY REPRESENT A NONOBSTRUCTING STONE VERSUS EARLY CONTRAST EXCRETION INTO A LEFT RENAL CALYX.
--- NOTE | 2018-02-03 09:16 | ED ---
Progress - Progress Note Progress Note: Patient was diagnosed with left urinary tract stone. This was found on initial CT read and discussed with patient as well as the treatment plan. Additional findings on patient's final CT scan report indicate "1. there is focal narrowing of the lumen of the rectum with mucosal thickening. While this may be an artifact of peristalsis, colonic mucosal neoplasm may gives a similar appearance. Recommend consideration of correlation with direct visualization." and "3. Fatty infiltration of the liver". Discussed w/ pt who reports he has an appointment today with his PCP. He will pass along the new findings and schedule follow-up testing/tx/etc as necessary. Course/Dx - Diagnoses Provider Diagnoses: Kidney stone Discharge - Sign-Out/Discharge Documenting (check all that apply): Post-Discharge Follow Up - Discharge Plan Condition: Improved Disposition: HOME Prescriptions: Hydrocodone/Acetaminophen [Vicodin 5-300 mg Tablet] 1 each PO Q6H PRN #12 tablet MDD 4 tabs PRN Reason: Pain - Severe Patient Education Materials: Kidney Stones (ED) Referrals: Mohit Arceo DO [Primary Care Provider] - Gerardo Ferguson MD [Medical Doctor] - Additional Instructions: PLEASE TAKE MEDICATIONS DIRECTED PLEASE MAKE AN APPOINTMENT FIRST THING IN THE MORNING TO BE SEEN BY A UROLOGIST WITHIN 1-3 DAYS PLEASE RETURN IMMEDIATELY TO THE ER IF YOU HAVE ANY WORSENING OR CONCERNING SYMPTOMS PLEASE MAKE AN APPOINTMENT TO BE SEEN BY YOUR PRIMARY CARE DOCTOR WITHIN 1 WEEK - Billing Disposition and Condition Condition: IMPROVED Disposition: HOME
== END 2018-02-03 02:39 | disposition home or self-care (01) ==
LOC: ED 18:26
DX: N20.0 Calculus of kidney (principal); F17.210 Nicotine dependence, cigarettes, uncomplicated; Z88.0 Allergy status to penicillin; Z87.442 Personal history of urinary calculi; R10.30 Lower abdominal pain, unspecified
CPT/HCPCS: 36415; 74177; 80053; 81003; 81015; 82150; 83605; 83690; 83735; 85025; 85610; 85730; 86140; 87086; 93005; 96374; 96375; 96376; 99285; J2270; J2405; Q9967

== ENCOUNTER 2018-02-05 17:32 | Emergency (ER) | payer MEDICARE, MEDICAID ==
--- OUTSIDE RECORDS SUMMARY | 2018-02-05 17:52 | XMS REPORT ---
:1980 External Reference #:[id number] Author Organization [facility] Address [address] [place] [address] Phone [phone] Care Team Providers Name Role Phone HCP given Primary Care Physician Unavailable Payers Type Date Identification Numbers Payment Provider Subscriber Medicare Primary Policy Number: [id number] [facility] [employer] PayID: [id number] [facility] [address] [place] [address] Part B Policy Number: [id number] Medicaid Bonny Massey PayID: [id number] [address] [place] [address] Problems Description No Information Family History Date Family Member(s) Problem(s) Comments Father Alcoholism Mother Alcoholism Mother Diabetes, Nos Mother Emotional Problems Mother High Blood Pressure Mother Mental Illness Children 8 Social History Type Date Description Comments Education High School Completed Marital Status 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 as needed for pain Tamsulosin 12/10/ Active Capsules 0.4mg 30caps 1 by mouth N20.0 Sopchak , HCL 2016 every day Mohit, D.O. [...] capsule by Mohit, 01/13/ mouth once D.O. 2017 per day for 10 days for flu prophylaxis No Active 12/10/ Hx Unknown Medications 2016 - 2016 Vital Signs Date Vital Result Comment 02/03/2018 BP Systolic 118 mmHg BP Diastolic 70 mmHg Body Temperature 98.2 F Weight 172.00 lb 01/21/2018 BP Systolic 136 mmHg BP Diastolic 86 mmHg Weight 175.00 lb 12/10/2016 BP Systolic 140 mmHg BP Diastolic 80 mmHg Body Temperature 98.1 F Height 66.75 inches 5'6.75" Weight 163.00 lb BMI (Body Mass Index) 25.7 kg/m2 Results Test Date Test Result H/L Range Note Urinalysis Profile 02/02/2018 Urine Color Yellow Urine Appearance Clear Urine Specific [place] 1.027 1.010-1.030 Urine pH 5.0 5-9 Urine Urobilinogen Negative Negative Urine Ketones 1+ Negative Urine Protein 2+(100 mg/dL) Negative Urine Leukocytes Negative Negative Urine Blood Negative Negative Urine Nitrite Negative Negative Urine Bilirubin Negative Negative Urine Glucose Negative Negative Urine White Blood Cell Trace(0-5/hpf) Absent Urine Red Blood Cell 2+(6-10/hpf) Absent Urine Bacteria Absent Absent Laboratory test finding 02/02/2018 Lactic Acid 0.7 mmol/L 0.5-2.0 1 CBC Auto Diff 02/02/2018 White Blood Count 10.9 10^3/uL High 3.5-10.8 Red Blood Count 5.02 10^6/uL 4.0-5.4 Hemoglobin 16.3 g/dL 14.0-18.0 Hematocrit 48 % 42-52 Mean Corpuscular Volume 95 fL High 80-94 Mean Corpuscular Hemoglobin 32 pg High 27-31 Mean Corpuscular HGB Conc 34 g/dL 31-36 Red Cell Distribution Width 14 % 10.5-15 Platelet Count 272 10^3/uL 150-450 Mean Platelet Volume 8.1 um3 7.4-10.4 Abs Neutrophils 6.6 10^3/uL 1.5-7.7 Abs Lymphocytes 3.0 10^3/uL 1.0-4.8 Abs Monocytes 1.0 10^3/uL High 0-0.8 Abs Eosinophils 0.2 10^3/uL 0-0.6 Abs Basophils 0 10^3/uL 0-0.2 Abs Nucleated RBC 0 10^3/uL Granulocyte % 60.6 % 38-83 Lymphocyte % 27.8 % 25-47 Monocyte % 9.2 % High 0-7 Eosinophil % 2.0 % 0-6 Basophil % 0.4 % 0-2 Nucleated Red Blood Cells % 0 Inr/Protime 02/02/2018 Inr 0.96 0.77-1.02 Laboratory test finding 02/02/2018 Partial Thrombo Time 31.7 seconds 26.0 -36.3 PTT Comp Metabolic Panel 02/02/2018 Sodium 138 mmol/L 133-145 Potassium 3.7 mmol/L 3.5-5.0 Chloride 102 mmol/L 101-111 Co2 Carbon Dioxide 26 mmol/L 22-32 Anion Gap 10 mmol/L 2-11 Glucose 90 mg/dL 70-100 Blood Urea Nitrogen 12 mg/dL 6-24 Creatinine 1.05 mg/dL 0.67-1.17 BUN/Creatinine Ratio 11.4 8-20 Calcium 9.9 mg/dL 8.6-10.3 Total Protein 7.7 g/dL 6.4-8.9 Albumin 4.7 g/dL 3.2-5.2 Globulin 3.0 g/dL 2-4 Albumin/Globulin Ratio 1.6 1-3 Total Bilirubin 0.50 mg/dL 0.2-1.0 Alkaline Phosphatase 44 U/L 34-104 Alt 30 U/L 7-52 Ast 22 U/L 13-39 Egfr Non- 79.5 >60 Egfr 102.2 >60 2 Laboratory test finding 02/02/2018 Magnesium 2.0 mg/dL 1.9-2.7 Amylase 34 U/L 29-103 Lipase 22 U/L 11.0-82.0 C Reactive Protein 1.36 mg/L < 5.00 3 Celiac Panel 01/23/2018 Tissue Transglutaminase IgA Ab <1.2 U/mL 4, 5 Immunoglobulin A 214 mg/dL 61 - 356 4 Celiac Interpretation See Comment 4, 6 CBC Auto Diff 01/23/2018 White Blood Count 6.7 10^3/uL 3.5-10.8 4 Red Blood Count 4.96 10^6/uL 4.0-5.4 4 Hemoglobin 15.9 g/dL 14.0-18.0 4 Hematocrit 47 % 42-52 4 Mean Corpuscular Volume 94 fL 80-94 4 Mean Corpuscular Hemoglobin 32 pg High 27-31 4 Mean Corpuscular HGB Conc 34 g/dL 31-36 4 Red Cell Distribution Width 14 % 10.5-15 4 Platelet Count 262 10^3/uL 150-450 4 Mean Platelet Volume 8 um3 7.4-10.4 4 Abs Neutrophils 3.3 10^3/uL 1.5-7.7 4 Abs Lymphocytes 2.3 10^3/uL 1.0-4.8 4 Abs Monocytes 0.8 10^3/uL 0-0.8 4 Abs Eosinophils 0.3 10^3/uL 0-0.6 4 Abs Basophils 0 10^3/uL 0-0.2 4 Abs Nucleated RBC 0 10^3/uL 4 Granulocyte % 49.4 % 38-83 4 Lymphocyte % 34.6 % 25-47 4 Monocyte % 11.5 % High 0-7 4 Eosinophil % 3.9 % 0-6 4 Basophil % 0.6 % 0-2 4 Nucleated Red Blood Cells % 0 4 Comp Metabolic Panel 01/23/2018 Sodium 138 mmol/L 133-145 4 Potassium 4.1 mmol/L 3.5-5.0 4 Chloride 106 mmol/L 101-111 4 Co2 Carbon Dioxide 26 mmol/L 22-32 4 Anion Gap 6 mmol/L 2-11 4 Glucose 108 mg/dL High 70-100 4 Blood Urea Nitrogen 16 mg/dL 6-24 4 Creatinine 0.96 mg/dL 0.67-1.17 4 BUN/Creatinine Ratio 16.7 8-20 4 Calcium 9.4 mg/dL 8.6-10.3 4 Total Protein 6.6 g/dL 6.4-8.9 4 Albumin 4.3 g/dL 3.2-5.2 4 Globulin 2.3 g/dL 2-4 4 Albumin/Globulin Ratio 1.9 1-3 4 Total Bilirubin 0.30 mg/dL 0.2-1.0 4 Alkaline Phosphatase 38 U/L 34-104 4 Alt 34 U/L 7-52 4 Ast 19 U/L 13-39 4 Egfr Non- 88.1 >60 4 Egfr 113.3 >60 4, 7 Ua Inhouse 01/21/2018 Ua Specific [place] 1.005 Ua PH 6.0 Laboratory test finding 01/05/2017 Stool For Blood SEE RESULT BELOW 8 C Difficile B PCR SEE RESULT BELOW 9 Culture Urine Inhouse 12/10/2016 Colonies negative 10 Urine Micro Inhouse 12/10/2016 Ua WBC - 10 Ua RBC 2- 3 10 Ua Casts - 10 Ua Epi - 10 Ua Other - 10 Ua Glucose - 10 Ua Bilirubin - 10 Ua Ketones - 10 Ua Specific [place] 1.030 10 Ua Blood - 10 Ua PH 6.0 10 Ua Protein tr 10 Ua Urobilinogen - 10 Ua Nitrite - 10 Ua Leukocytes - 10 1 [place] Severe Sepsis and Septic Shock Management Bundle Measure requires all lactic acids initially measuring >2.0 mmol/L be repeated. 2 Because ethnic data is not always readily [...] 15-29 5 Kidney failure <15 (or dialysis) 3 Acute inflammation: >10.00 4 Blood labs are done, there are no stool spec results. SL 5 REFERENCE VALUE <4.0 (Negative) Test Performed by: [place] [id number] Negative serology. Celiac disease unlikely. However, approximately 10% of patients with celiac disease are seronegative. Also, patients who are already adhering to a gluten-free diet may be seronegative. If celiac disease is highly clinically suspected, consider HLA-DQ typing. Test Performed by: [place] [id number] 7 Because ethnic data is not always readily [...] 15-29 5 Kidney failure <15 (or dialysis) 8 SEE RESULT BELOW Name: BONNY MASSEY : [address]: Rylan Dwyer MD Acct: [id number] Unit: [id number] AGE: 36 Location: ED Re01/05/17 SEX: M Status: DEP ER SPEC: [id number] GAYATRI: 01/05/[address] [facility] [address]: Rylan Dwyer MD REQ: [id number] RECD: 01/05/17 STATUS: ADDISON LUBIN DR: Afshin Arceo DO _ S[facility] ORDERED: Hemoccult, Stool Culture Procedure Result Reported [...] performed at Main Lab DEPARTMENT OF PATHOLOGY, [address] [place] [address] Artemio Franco M.D. Director GURJIT # [id number] Patient: BONNY MASSEY [id number] (Continued) Specimen: [id number] Collected: 01/05/17 Received: 01/05/17 (Continued) Procedure Result Reported Site Shiga Toxin 1 2 Final (continued) 01/07/17- 1236 Stool Occult Blood Final 01/05/17- 929 ML Stool Occult Blood Positive * ML - [facility] ([facility]) . END OF REPORT * ML=Testing performed at Main Lab DEPARTMENT OF PATHOLOGY, [address] [place] [address] Artemio Franco M.D. Director [facility] # [id number] 9 SEE RESULT BELOW Name: BONNY MASSEY : [address]: Rylan Dwyer MD Acct: [id number] Unit: [id number] AGE: 36 Location: ED Re01/05/17 SEX: M Status: DEP ER SPEC: [id number] GAYATRI: 01/05/[address] [facility] [address]: Rylan Dwyer MD REQ: [id number] RECD: 01/05/17 STATUS: ADDISON LUBIN DR: Afshin Bapana MD Mohit Sopchak DO _ SOURCE: STOOL SPDESC: ORDERED: C. diff PCR, Fecal Lactoferr Procedure Result Reported Site Stool Specimen Description Final 01/05/17- 930 ML Stool Color Brown Stool Form Nonformed Stool Consistency Liquid C. difficile PCR Final 01/05/17- 1009 ML Organism 1 027 Presumptive NEGATIVE Organism 2 Toxigenic C.diff POSITIVE Fecal Lactoferrin (Stool WBC) Final 01/05/17- 31 ML Fecal Lactoferrin Positive by Immunoassay TEST LIMITATIONS: Assay detects elevated levels of lactoferrin released from fecal leukocytes as a marker of intestinal inflammation. The test may not be appropriate in immunocompromised persons. Fecal samples from breast fed infants should not be used with this assay. * ML - MAIN LAB ([facility]) . END OF REPORT * ML=Testing performed at Main Lab DEPARTMENT OF PATHOLOGY, [address] [place] [address] Artemio Franco M.D. Director [facility] # [id number] 10 void, clear, yellow Procedures Date CPT Code Description Status 02/03/2018 01137 Anoscopy Diagnostic Completed 01/21/2018 75678 X-Ray Hand Three Or More Views Completed 01/21/2018 85510 X-Ray Hand Three Or More Views Completed Encounters Type Date Location Provider CPT E/M Dx Office Visit 01/21/2018 2:20p Main Office Awais Nix [address]50 M25.541 M79.644 K21.9 R19.7 R11.10 R30.0 M54.5 N20.0 Office Visit 12/10/2016 1:30p Main Office Mohit Arceo D.O. 62859 N20.0 M54.5 R30.0 Plan of Care Future Appointment(s):02/05/2018 3:00 pm - Mohit Arceo D.O. at Main Jinixf8202/11/2018 9:20 am - Awais Nix at Main Msfbkj2302/03/2018 - Mohit Arceo D.O.N20.0 Calculus of kimjrgW18.84 Generalized abdominal painNew Medication:Omeprazole 40 mgNew Xrays:CT Abdomen With ContrastUltrasound , Abdominal, CompleteFollow up:
--- OUTSIDE RECORDS SUMMARY | 2018-02-05 17:52 | XMS REPORT ---
:1980 External Reference #:[id number] Author Organization [facility] Address [address] [place] [address] Phone [phone] Care Team Providers Name Role Phone HCP given Primary Care Physician Unavailable Payers Type Date Identification Numbers Payment Provider Subscriber Medicare Primary Policy Number: [id number] 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 Tamiflu 01/03/ Hx Capsules 75mg 10caps take 1 Adis 2017 - capsule by Mohit, 01/13/ mouth once D.O. 2017 per day for 10 days for flu prophylaxis No Active 12/10/ Hx Unknown Medications 2016 - 2016 Vital Signs Date Vital Result Comment 02/05/2018 BP Systolic 146 mmHg BP Diastolic 90 mmHg Body Temperature 98.1 F Weight 174.00 lb 02/03/2018 BP Systolic 118 mmHg BP Diastolic 70 mmHg Body Temperature 98.2 F Weight 172.00 lb 01/21/2018 BP Systolic 136 mmHg BP Diastolic 86 mmHg Weight 175.00 lb 12/10/2016 BP Systolic 140 mmHg BP Diastolic 80 mmHg Body Temperature 98.1 F Height 66.75 inches 5'6.75" Weight 163.00 lb BMI (Body Mass Index) 25.7 kg/m2 Results Test Date Test Result H/L Range Note CBC Auto Diff 02/03/2018 White Blood Count 7.8 10^3/uL 3.5-10.8 Red Blood Count 5.14 10^6/uL 4.0-5.4 Hemoglobin 16.6 g/dL 14.0-18.0 Hematocrit 48 % 42-52 Mean Corpuscular Volume 94 fL 80-94 Mean Corpuscular Hemoglobin 32 pg High 27-31 Mean Corpuscular HGB Conc 35 g/dL 31-36 Red Cell Distribution Width 14 % 10.5-15 Platelet Count 261 10^3/uL 150-450 Mean Platelet Volume 8.3 um3 7.4-10.4 Abs Neutrophils 4.2 10^3/uL 1.5-7.7 Abs Lymphocytes 2.5 10^3/uL 1.0-4.8 Abs Monocytes 0.8 10^3/uL 0-0.8 Abs Eosinophils 0.2 10^3/uL 0-0.6 Abs Basophils 0 10^3/uL 0-0.2 Abs Nucleated RBC 0 10^3/uL Granulocyte % 54.1 % 38-83 Lymphocyte % 31.9 % 25-47 Monocyte % 10.3 % High 0-7 Eosinophil % 3.1 % 0-6 Basophil % 0.6 % 0-2 Nucleated Red Blood Cells % 0 Comp Metabolic Panel 02/03/2018 Sodium 138 mmol/L 133-145 Potassium 4.6 mmol/L 3.5-5.0 Chloride 103 mmol/L 101-111 Co2 Carbon Dioxide 26 mmol/L 22-32 Anion Gap 9 mmol/L 2-11 Glucose 83 mg/dL 70-100 Blood Urea Nitrogen 13 mg/dL 6-24 Creatinine 1.02 mg/dL 0.67-1.17 BUN/Creatinine Ratio 12.7 8-20 Calcium 9.7 mg/dL 8.6-10.3 Total Protein 7.4 g/dL 6.4-8.9 Albumin 4.6 g/dL 3.2-5.2 Globulin 2.8 g/dL 2-4 Albumin/Globulin Ratio 1.6 1-3 Total Bilirubin 0.50 mg/dL 0.2-1.0 Alkaline Phosphatase 43 U/L 34-104 Alt 26 U/L 7-52 Ast 19 U/L 13-39 Egfr Non- 82.2 >60 Egfr 105.7 >60 1 Laboratory test finding 02/03/2018 Erythrocyte Sed Rate 12 mm/Hr 0-14 C Reactive Protein 5.61 mg/L High < 5.00 2 Urinalysis Profile 02/02/2018 Urine Color Yellow Urine Appearance Clear Urine Specific [place] 1.027 1.010-1.030 Urine pH 5.0 5-9 Urine Urobilinogen Negative Negative Urine Ketones 1+ Negative Urine Protein 2+(100 mg/dL) Negative Urine Leukocytes Negative Negative Urine Blood Negative Negative Urine Nitrite Negative Negative Urine Bilirubin Negative Negative Urine Glucose Negative Negative Urine White Blood Cell Trace(0-5/hpf) Absent Urine Red Blood Cell 2+(6-10/hpf) Absent Urine Bacteria Absent Absent Laboratory test 02/02/2018 Urine Culture And SEE RESULT 3 finding Sensitivities BELOW Laboratory test 02/02/2018 Lactic Acid 0.7 mmol/L 0.5-2.0 4 finding CBC Auto Diff 02/02/2018 White Blood Count [...] Egfr Non- 79.5 >60 Egfr 102.2 >60 5 Laboratory test finding 02/02/2018 Magnesium 2.0 mg/dL 1.9-2.7 Amylase 34 U/L 29-103 Lipase 22 U/L 11.0-82.0 C Reactive Protein 1.36 mg/L < 5.00 6 Comp Metabolic Panel 01/23/2018 Sodium 138 mmol/L 133-145 7 Potassium 4.1 mmol/L 3.5-5.0 7 Chloride 106 mmol/L 101-111 7 Co2 Carbon Dioxide 26 mmol/L 22-32 7 Anion Gap 6 mmol/L 2-11 7 Glucose 108 mg/dL High 70-100 7 Blood Urea Nitrogen 16 mg/dL 6-24 7 Creatinine 0.96 mg/dL 0.67-1.17 7 BUN/Creatinine Ratio 16.7 8-20 7 Calcium 9.4 mg/dL 8.6-10.3 7 Total Protein 6.6 g/dL 6.4-8.9 7 Albumin 4.3 g/dL 3.2-5.2 7 Globulin 2.3 g/dL 2-4 7 Albumin/Globulin Ratio 1.9 1-3 7 Total Bilirubin 0.30 mg/dL 0.2-1.0 7 Alkaline Phosphatase 38 U/L 34-104 7 Alt 34 U/L 7-52 7 Ast 19 U/L 13-39 7 Egfr Non- 88.1 >60 7 Egfr 113.3 >60 7, 8 CBC Auto Diff 01/23/2018 White Blood Count 6.7 10^3/uL 3.5-10.8 7 Red Blood Count 4.96 10^6/uL 4.0-5.4 7 Hemoglobin 15.9 g/dL 14.0-18.0 7 Hematocrit 47 % 42-52 7 Mean Corpuscular Volume 94 fL 80-94 7 Mean Corpuscular Hemoglobin 32 pg High 27-31 7 Mean Corpuscular HGB Conc 34 g/dL 31-36 7 Red Cell Distribution Width 14 % 10.5-15 7 Platelet Count 262 10^3/uL 150-450 7 Mean Platelet Volume 8 um3 7.4-10.4 7 Abs Neutrophils 3.3 10^3/uL 1.5-7.7 7 Abs Lymphocytes 2.3 10^3/uL 1.0-4.8 7 Abs Monocytes 0.8 10^3/uL 0-0.8 7 Abs Eosinophils 0.3 10^3/uL 0-0.6 7 Abs Basophils 0 10^3/uL 0-0.2 7 Abs Nucleated RBC 0 10^3/uL 7 Granulocyte % 49.4 % 38-83 7 Lymphocyte % 34.6 % 25-47 7 Monocyte % 11.5 % High 0-7 7 Eosinophil % 3.9 % 0-6 7 Basophil % 0.6 % 0-2 7 Nucleated Red Blood Cells % 0 7 Celiac Panel 01/23/2018 Tissue Transglutaminase IgA Ab <1.2 U/mL 7, 9 Immunoglobulin A 214 mg/dL 61 - 356 7 Celiac Interpretation See Comment 7, 10 Ua Inhouse 01/21/2018 Ua Specific [place] 1.005 Ua PH 6.0 Laboratory test finding 01/05/2017 Stool For Blood SEE RESULT BELOW 11 C Difficile B PCR SEE RESULT BELOW 12 Urine Micro Inhouse 12/10/2016 Ua WBC - 13 Ua RBC 2- 3 13 Ua Casts - 13 Ua Epi - 13 Ua Other - 13 Ua Glucose - 13 Ua Bilirubin - 13 Ua Ketones - 13 Ua Specific [place] 1.030 13 Ua Blood - 13 Ua PH 6.0 13 Ua Protein tr 13 Ua Urobilinogen - 13 Ua Nitrite - 13 Ua Leukocytes - 13 Culture Urine Inhouse 12/10/2016 Colonies negative 13 1 Because ethnic data is not always readily [...] 15-29 5 Kidney failure <15 (or dialysis) 2 Acute inflammation: >10.00 3 SEE RESULT BELOW Name: CHRISTOPHER MASSEYUSAMA : [address]: Gerardo Thornton MD Acct: [id number] Unit: [id number] AGE: 37 Location: ED Re02/02/18 SEX: M Status: DEP ER SPEC: [id number] GAYATRI: 02/02/[address] [facility] [address]: Gerardo Thornton MD REQ: [id number] RECD: 02/02/18 STATUS: ADDISON LUBIN DR: Mohit Arceo DO _ SOURCE: URINE SPDESC: ORDERED: Urine Culture Procedure Result Reported Site Urine Culture Final 02/04/18- 0750 ML No Growth (<1,000 CFU/mL) * ML - Main Lab . END OF REPORT DEPARTMENT OF PATHOLOGY, [address] [place] [address] Artemio Franco M.D. Director [facility] # [id number] 4 [facility] Severe Sepsis and Septic Shock Management Bundle Measure requires all lactic acids initially measuring >2.0 mmol/L be repeated. 5 Because ethnic data is not always readily [...] 15-29 5 Kidney failure <15 (or dialysis) 6 Acute inflammation: >10.00 7 Blood labs are done, there are no stool spec results. SL 8 Because ethnic data is not always readily [...] 15-29 5 Kidney failure <15 (or dialysis) 9 REFERENCE VALUE <4.0 (Negative) Test Performed by: [place] [address] 10 Negative serology. Celiac disease unlikely. However, approximately 10% of patients with celiac disease are seronegative. Also, patients who are already adhering to a gluten-free diet may be seronegative. If celiac disease is highly clinically suspected, consider HLA-DQ typing. Test Performed by: [place] [id number] 11 SEE RESULT BELOW Name: BONNY MASSEY : [address]: Rylan Dwyer MD Acct: [id number] Unit: [id number] AGE: 36 Location: ED Re01/05/17 SEX: M Status: DEP ER SPEC: [id number] GAYATRI: 01/05/[address] [facility] [address]: Rylan Dwyer MD REQ: [id number] RECD: 01/05/17 STATUS: ADDISON LUBIN DR: Afshin [...] performed at Main Lab DEPARTMENT OF PATHOLOGY, [address] [place] [address] Artemio Franco M.D. Director [facility] # [id number] Patient: HAMILTON MASSEYELSY [id number] (Continued) Specimen: [id number] Collected: 01/05/17 Received: 01/05/17 (Continued) Procedure Result Reported Site Shiga Toxin 1 2 Final (continued) 01/07/17- 1236 Stool Occult Blood Final 01/05/17- 929 ML Stool Occult Blood Positive * ML - MAIN LAB ([facility]) . END OF REPORT * ML=Testing performed at Main Lab DEPARTMENT OF PATHOLOGY, [address] [place] [address] Artemio Franco M.D. Director [facility] # [id number] 12 SEE RESULT BELOW Name: BONNY MASSEY : [address]: Rylan Dwyer MD Acct: [id number] Unit: [id number] AGE: 36 Location: ED Re01/05/17 SEX: M Status: DEP ER SPEC: [id number] GAYATRI: 01/05/[address] [facility] [address]: Rylan Dwyer MD REQ: [id number] RECD: 01/05/17 STATUS: ADDISON LUBIN DR: Afshin Arceo DO _ SOURCE: STOOL SPDESC: ORDERED: C. diff PCR, Fecal Lactoferr Procedure Result Reported Site Stool Specimen Description Final 01/05/17- 31 ML Stool Color Brown Stool Form Nonformed [...] this assay. * ML - MAIN LAB ([facility]) . END OF REPORT * ML=Testing performed at Main Lab DEPARTMENT OF PATHOLOGY, [address] [place] [address] Artemio Franco M.D. Director [facility] # [id number] 13 void, clear, yellow Procedures Date CPT Code Description Status 02/03/2018 53718 Anoscopy Diagnostic Completed 01/21/2018 12385 X-Ray Hand Three Or More Views Completed 01/21/2018 53210 X-Ray Hand Three Or More Views Completed Encounters Type Date Location Provider CPT E/M Dx Office Visit 02/05/2018 3:00p Main Office Mohit Arceo D.O. 68184 R10.84 Office Visit 02/03/2018 3:00p Main Office Mohit Arceo D.O. 02015 N20.0 R10.84 R19.4 K92.1 Office Visit 01/21/2018 2:20p Main Office Awais Nix 01570 M25.541 M79.644 K21.9 R19.7 R11.10 R30.0 M54.5 N20.0 Office Visit 12/10/2016 1:30p Main Office Mohit Arceo D.O. 71261 N20.0 M54.5 R30.0 Plan of Care Future Appointment(s):02/11/2018 9:20 am - Trish Serrano PSanjuanita at [id number] - Mohit Arceo D.O.R10.84 Generalized abdominal painComments:Called and talked with Priyanka in ER regarding transition of care and thoughts regarding work up including CTA and ultrasound and EKG with cardiac work up.Follow up:to er now for worsening acute abdominal pain with percussive tenderness.
[2018-02-05 20:23] LABS: ABS Basophils 0 10^3/ul (0-0.2); ABS Eosinophils 0.2 10^3/ul (0-0.6); ABS Lymphocytes 2.6 10^3/ul (1.0-4.8); ABS Monocytes 0.7 10^3/ul (0-0.8); ABS Neutrophils 3.4 10^3/ul (1.5-7.7); ABS Nucleated RBC 0 10^3/ul; Eosinophil % 3.1 % (0-6); Hematocrit 46 % (42-52); Hemoglobin 15.9 g/dl (14.0-18.0); Lymphocyte % 37.4 % (25-47); Mean Corpuscular HGB Conc 34 g/dl (31-36); Mean Corpuscular Hemoglobin 32 pg (27-31); Mean Corpuscular Volume 94 fL (80-94); Mean Platelet Volume 7.9 um3 (7.4-10.4); Nucleated Red Blood Cells % 0.1; Platelet Count 253 10^3/ul (150-450); Red Blood Count 4.91 10^6/ul (4.0-5.4); Red Cell Distribution Width 14 % (10.5-15)
[2018-02-05] MEDS ORDERED: NS 0.9% 1000 ML* 1,000 ML IV ONE (20:26)
[2018-02-05] MEDS ORDERED: Ondansetron INJ* 2 MG/ML VIAL IV ONE (20:26)
[2018-02-05] MEDS ORDERED: Ketorolac INJ* 30 MG/ML 1 ML VIAL IV PUSH ONE (20:26)
[2018-02-05 20:35] LABS: EGFR Non-African American 79.5 (>60)
[2018-02-05] MEDS ORDERED: Iohexol 300* (CONTRAST) 10 ML SDV IV ONE (21:24)
[2018-02-05 21:40] LABS: Urine Appearance Clear; Urine Blood Negative (Negative); Urine Color Yellow; Urine Ketones Negative (Negative); Urine Protein Negative (Negative); Urine Specific Gravity 1.016 (1.010-1.030); Urine Urobilinogen Negative (Negative)
[2018-02-05 23:59] VITALS: BP 127/86
--- NOTE | 2018-02-06 00:37 | ED ---
Juan Li Abhishek, scribed for Leo Thakkar MD on 02/05/18 at 2144 . Abdominal Pain/Male - HPI Summary HPI Summary: This patient is a 37 year old M [facility] accompanied by_ with a chief complaint of left sided abd pain since Saturday (02/02/18). The patient rates the pain 9/10 in severity. Symptoms aggravated by nothing. Symptoms alleviated by nothing. Patient reports diffuse back pain, and urinary bleeding. The pt reports that he was told has a 7mm stone in the kidney by a physician. According to pt, there is a a chronic hx of kidney stones. Pt states the pain do not feel similar to past kidney stones. Pt is a smoker. PT reports vomiting and bloating. According the previous medical history the pt has had colitis and a section of colon that looks narrowed. Patient denies fever, BM since Saturday. Allergies reported by the pt and noted. Medications are reported (ompeprazole). - History of Current Complaint Chief Complaint: EDAbdPain Stated Complaint: ABD PAIN Time Seen by Provider: 02/05/18 20:16 Hx Obtained From: Patient Onset/Duration: Gradual Onset, Lasting Days - since Saturday02/02/18, Still Present Timing: Constant Severity Initially: Severe Severity Currently: Severe Pain Intensity: 9 Pain Scale Used: 0-10 Numeric Location: Discrete At: LLQ, Other Radiates to: Back Aggravating Factor(s): Nothing Alleviating Factor(s): Nothing Associated Signs And Symptoms: Positive: Vomiting, Other - Bloating and negative BM since Saturday.. Negative: Fever - Allergies/Home Medications Allergies/Adverse Reactions: Allergies Allergy/AdvReac Type Severity Reaction Status Date / Time Penicillins Allergy Swelling Verified 02/05/18 20:11 PMH/Surg Hx/FS Hx/Imm Hx Endocrine/Hematology History: Denies: Hx Diabetes Cardiovascular History: Denies: Hx Hypertension GI History: Reports: Other GI Disorders - Colitis History: Reports: Hx Kidney Stones Denies: Hx Dialysis, Hx Renal Disease - Surgical History Surgery Procedure, Year, and Place: renal stent/litho Infectious Disease History: No Infectious Disease History: Denies: Traveled Outside the [place] in Last 30 Days - Family History Known Family History: Negative: Hypertension, Diabetes - Social History Occupation: Employed Full-time Lives: With Family Alcohol Use: None Hx Substance Use: Yes Substance Use Type: Reports: Marijuana Substance Use Comment - Amount & Last Used: Last week Hx Tobacco Use: Yes Smoking Status (MU): Light Every Day Tobacco Smoker Review of Systems Negative: Fever Eyes: Negative ENT: Negative Cardiovascular: Negative Respiratory: Negative Gastrointestinal: Other - Negative BM since saturday Positive: Abdominal Pain - LLQ Genitourinary: Other - Urinary bleeding. Musculoskeletal: Negative Skin: Negative Neurological: Negative Psychological: Normal All Other Systems Reviewed And Are Negative: Yes Physical Exam - Summary Physical Exam Summary: Appearance: Well appearing, no pain distress Skin: warm, dry, reflects adequate perfusion Head/face: normal Eyes: EOMI, [place] ENT: normal Neck: supple, non-tender Respiratory: CTA, breath sounds present Cardiovascular: RRR, pulses symmetrical Abdomen: Diffuse mid abd tenderness No rebounding or guarding No mass Bowel Sounds: present Musculoskeletal: normal, strength/ROM intact Neuro: normal, sensory motor intact, A&Ox3 Triage Information Reviewed: Yes Vital Signs On Initial Exam: Initial Vitals Temp Pulse Resp BP Pulse Ox 98.7 F 87 20 135/92 97 02/05/18 17:33 02/05/18 17:33 02/05/18 17:33 02/05/18 17:33 02/05/18 17:33 Vital Signs Reviewed: Yes Diagnostics - Vital Signs Vital Signs Temp Pulse Resp BP Pulse Ox 02/05/18 17:33 98.7 F 87 20 135/92 97 - Laboratory Lab Results: Lab Results 02/05/18 02/05/18 Range/Units 20:03 20:03 WBC 7.0 (3.5-10.8) 10^3/ul RBC 4.91 (4.0-5.4) 10^6/ul Hgb 15.9 (14.0-18.0) g/dl Hct 46 (42-52) % MCV 94 (80-94) fL MCH 32 H (27-31) pg MCHC 34 (31-36) g/dl RDW 14 (10.5-15) % Plt Count 253 (150-450) 10^3/ul MPV 7.9 (7.4-10.4) um3 Neut % (Auto) 49.3 (38-83) % Lymph % (Auto) 37.4 (25-47) % [place] % (Auto) 9.6 H (0-7) % Eos % (Auto) 3.1 (0-6) % Baso % (Auto) 0.6 (0-2) % Absolute Neuts (auto) 3.4 (1.5-7.7) 10^3/ul Absolute Lymphs (auto) 2.6 (1.0-4.8) 10^3/ul Absolute Monos (auto) 0.7 (0-0.8) 10^3/ul Absolute Eos (auto) 0.2 (0-0.6) 10^3/ul Absolute Basos (auto) 0 (0-0.2) 10^3/ul Absolute Nucleated RBC 0 10^3/ul Nucleated RBC % 0.1 Sodium 139 (139-145) mmol/L Potassium 4.0 (3.5-5.0) mmol/L Chloride 104 (101-111) mmol/L Carbon Dioxide 28 (22-32) mmol/L Anion Gap 7 (2-11) mmol/L BUN 14 (6-24) mg/dL Creatinine 1.05 (0.67-1.17) mg/dL Est GFR ( Amer) 102.2 (>60) Est GFR (Non-Af Amer) 79.5 (>60) BUN/Creatinine Ratio 13.3 (8-20) Glucose 102 H (70-100) mg/dL Calcium 9.2 (8.6-10.3) mg/dL Total Bilirubin 0.30 (0.2-1.0) mg/dL AST 15 (13-39) U/L ALT 16 (7-52) U/L Alkaline Phosphatase 39 (34-104) U/L C-Reactive Protein 1.87 (< 5.00) mg/L Total Protein 6.7 (6.4-8.9) g/dL Albumin 4.1 (3.2-5.2) g/dL Globulin 2.6 (2-4) g/dL Albumin/Globulin Ratio 1.6 (1-3) Lipase 47 (11.0-82.0) U/L Result Diagrams: 02/05/18 20:03 02/05/18 20:03 Lab Statement: Any lab studies that have been ordered have been reviewed, and results considered in the medical decision making process. - CT CT A/P CT Interpretation Completed By: Radiologist - CT A/P reveals nephrolithiasis as per radiologist. ED Physician has reviewed this radiology report. Re-Evaluation - Re-Evaluation 2330 Re-Evaluation Time: 23:30 Comment: WE accessed the prescription drug database and the only evidence of prescription drugs was two days ago. 2340 Change: Improved - Upon recieving Toradol the pt's condition improved. Abdominal Pain Fem Course/Dx - Course Course Of Treatment: Pt with relief from toradol of mid abd pain. No mass. CT was repeated at his PMD's request. No acute findings. No constipation. Pt able to sleep comfortably. No longer with blood in urine. Hx of stones. 1st CT may have missed stone passing due to contrast? Today urine clear and sx not consistent with stone. D/C in good condition with pending GI eval for colonscopy. - Diagnoses Differential Diagnosis/HQI/PQRI: Abdominal Aortic Aneurysm, Bowel Obstruction, Constipation, Diverticulitis, Ischemic Bowel, Pancreatitis, Peptic Ulcer Disease , Renal Colic Provider Diagnoses: Generalized abdominal pain Discharge - Sign-Out/Discharge Documenting (check all that apply): Discharge - Home - Discharge Plan Condition: Improved Disposition: HOME Prescriptions: Famotidine TAB* [Pepcid 20 MG TAB*] 20 mg PO BID #20 tab Hyoscyamine Sulfate 0.125 mg PO Q6H PRN #30 tab.rapdis PRN Reason: abdominal cramping Naproxen Sodium [Naprelan] 500 mg PO BID PRN #10 tbmp.24hr PRN Reason: Pain Patient Education Materials: Acute Abdominal Pain (ED) Referrals: Mohit Arceo DO [Primary Care Provider] - Additional Instructions: Call your doctor first thing in the morning -- you may need evaluation by GI doctor and perhaps a colonscopy if symptoms persist. Return with fever, vomiting , new symptoms or other concerns. - Billing Disposition and Condition Condition: IMPROVED Disposition: HOME The documentation as recorded by the Juan parada Abhishek accurately reflects the service I personally performed and the decisions made by me, Leo Thakkar MD.
--- NOTE | 2018-02-06 08:03 | RAD ---
INDICATION: 37-year-old with abdominal pain. Nephrolithiasis. COMPARISON: CT February 03, 2018 TECHNIQUE: Axial source images were obtained from the hemidiaphragms to the symphysis pubis following administration of oral and intravenous contrast. 102 mL Omnipaque 300 was utilized. Coronal and sagittal reconstructed images were acquired. Lung bases: The lung bases are clear. Liver: The liver is normal in size. There is mild hepatic steatosis. There are no masses. There is no ductal dilatation. Gallbladder: There are no calcified gallstones. There is no evidence of wall thickening or pericholecystic fluid. Spleen: The spleen is normal in size. There are no masses. Pancreas: There is no focal pancreatic mass or ductal dilatation. Adrenal glands: There is no evidence of adrenal mass. Kidneys: The kidneys are normal in size and position. There are prompt nephrograms and there is prompt excretion bilaterally. There are no renal parenchymal masses. There is a 5 mm upper pole left renal calculus, unchanged. Adenopathy: There is no evidence of adenopathy by size criteria. Fluid collections: There are no free or localized fluid collections. Vessels:There are no significant atherosclerotic changes involving the aorta. There is no focal aneurysm. The iliac vessels are normal in caliber. The IVC appears normal. GI tract: There are no acute CT bowel findings. There is no obstruction. There is a small hiatal hernia. The stomach and small bowel otherwise appear normal. The lower GI tract is remarkable for scant diverticula but no CT evidence of acute diverticulitis. The cecum, ileocecal valve, and terminal ileum appear normal. The appendix is visualized and appear normal. Pelvic organs: The prostate and seminal vesicles appear normal Bladder: There are no bladder masses. Abdominal and pelvic soft tissues: The extraperitoneal abdominal and pelvic soft tissues appear normal.. Osseous structures: There are no acute osseous findings. Other: None IMPRESSION: 1. Small hiatal hernia. 2. Mild hepatic steatosis. 3. Nonobstructive left-sided nephrolithiasis, unchanged. 4. Scant diverticula. No CT evidence of acute diverticulitis.
== END 2018-02-05 23:58 | disposition home or self-care (01) ==
LOC: ED 17:32
DX: R10.84 Generalized abdominal pain (principal); M54.9 Dorsalgia, unspecified; F17.210 Nicotine dependence, cigarettes, uncomplicated; Z88.0 Allergy status to penicillin; N20.0 Calculus of kidney; K44.9 Diaphragmatic hernia without obstruction or gangrene; N28.89 Other specified disorders of kidney and ureter
CPT/HCPCS: 36415; 74177; 80053; 81003; 83690; 85025; 86140; 96361; 96374; 96375; 99283; J1885; J2405; Q9967

== ENCOUNTER 2018-08-18 09:02 | Emergency (ER) | payer MEDICARE, MEDICAID ==
--- NOTE | 2018-08-18 09:09 | ED ---
HPI Chest Pain - HPI Summary HPI Summary: A 38 y/o male BIBA c/o CP since this morning at 7:30 in middle of chest. Per EMS his mouth seemed swollen and his jaw seemed shut when talking. The CP was a sudden onset described as a sharp, stabbing pain. He also describes it as tightness that is non-radiating. Pain was a 6/10 but after NTG was a 3/10. Hes been coughing and c/o fatigue for the past couple days. He denies any fever, back, shoulder or arm pain. Deep breaths worsen his pain. He has a FHx of DM. He smokes 1ppd. - History of Current Complaint Chief Complaint: EDChestPainROMI Time Seen by Provider: 08/18/18 09:07 Hx Obtained From: Patient Onset/Duration: Started Hours Ago, Still Present Initial Severity: Moderate Current Severity: Moderate Pain Intensity: 6 Chest Pain Location: Discrete at: - middle Chest Pain Radiates: No Character: Tightness Aggravating Factor(s): Deep Breaths Alleviating Factor(s): Nothing Associated Signs and Symptoms: Positive: Cough - Allergy/Home Medications Allergies/Adverse Reactions: Allergies Allergy/AdvReac Type Severity Reaction Status Date / Time Penicillins Allergy Swelling Verified 08/18/18 09:09 PMH/Surg Hx/FS Hx/Imm Hx Endocrine/Hematology History: Denies: Hx Diabetes Cardiovascular History: Denies: Hx Hypercholesterolemia, Hx Hypertension GI History: Reports: Other GI Disorders - Colitis History: Reports: Hx Kidney Stones Denies: Hx Dialysis, Hx Renal Disease - Surgical History Surgery Procedure, Year, and Place: renal stent/litho Infectious Disease History: No Infectious Disease History: Denies: Traveled Outside the [place] in Last 30 Days - Family History Known Family History: Positive: Diabetes Negative: Hypertension - Social History Alcohol Use: None Hx Substance Use: Yes Substance Use Type: Reports: Marijuana Substance Use Comment - Amount & Last Used: Last week Hx Tobacco Use: Yes Smoking Status (MU): Light Every Day Tobacco Smoker Review of Systems Positive: Fatigue. Negative: Fever Positive: Chest Pain Positive: Cough Negative: Myalgia - arm, shoulder, back pain All Other Systems Reviewed And Are Negative: Yes Physical Exam - Summary Physical Exam Summary: Appearance: Fatigue, mild pain distress Skin: warm, dry, reflects adequate perfusion Head/face: normal Eyes: EOMI, [place] ENT: mucous membranes moist Neck: supple, non-tender Respiratory: Rustling breath sounds, no rales or rhonchi Cardiovascular: RRR, pulses symmetrical Abdomen: non-tender, soft Bowel Sounds: present Musculoskeletal: normal, strength/ROM intact Neuro: normal, sensory motor intact, A&Ox3 Triage Information Reviewed: Yes Vital Signs On Initial Exam: Initial Vitals Temp Pulse Resp BP Pulse Ox 98.5 F 86 16 130/87 98 08/18/18 09:05 08/18/18 09:05 08/18/18 09:05 08/18/18 09:05 08/18/18 09:05 Vital Signs Reviewed: Yes Diagnostics - Vital Signs Vital Signs Temp Pulse Resp BP Pulse Ox 08/18/18 09:05 98.5 F 86 16 130/87 98 - Laboratory Result Diagrams: 08/18/18 09:23 08/18/18 09:23 Lab Statement: Any lab studies that have been ordered have been reviewed, and results considered in the medical decision making process. - Radiology CXR Xray Interpretation: No Acute Changes Radiology Interpretation Completed By: Radiologist - No active cardiopulmonary disease. This report has been reviewed by the ED physician. - EKG 9:15 Cardiac Rate: NL - 88bpm EKG Rhythm: Sinus Rhythm ST Segment: Normal Re-Evaluation - Re-Evaluation First Eval Re-Evaluation Time: 10:43 Change: Unchanged Comment: Resting O2 sat 92% Second Eval Re-Evaluation Time: 11:19 Change: Improved Comment: Resting O2 Sat 100% Chest Pain Course/Dx - Course Course Of Treatment: Patient presents with bronchitis type symptoms with shortness of breath, body aches and cough. He is a smoker. His girlfriend also has similar symptoms and was treated yesterday. He was hydrated here given breathing treatments and steroids. A flu test confirms she has influenza type B. This explains his symptoms and he has less than 48 hours worth of symptoms. He'll be treated with Tamiflu. Follow up closely primary care physician. - Chest Pain Differential Diagnosis/HQI/PQRI: ACS, CHF, Chest Wall, Lower Respiratory Infection, Pulmonary Edema, Pulmonary Embolism - Diagnoses Provider Diagnoses: Influenza B, Dyspnea Discharge - Sign-Out/Discharge Documenting (check all that apply): Patient Departure - Discharge Plan Condition: Improved Disposition: HOME Prescriptions: Albuterol HFA INHALER* [Ventolin HFA Inhaler*] 2 puff INH Q4H PRN #1 mdi PRN Reason: Sob/Wheezing guaiFENesin [Mucinex] 600 mg PO BID #12 tab.er.12h Oseltamivir CAP* [Tamiflu CAP*] 75 mg PO BID #10 cap Patient Education Materials: Influenza (ED) Forms: *Work Release Referrals: Mohit Arceo DO [Primary Care Provider] - Additional Instructions: Influence of be. It is worthwhile free to get the vaccine still. Drink plenty of fluids, Tylenol/ibuprofen as needed for body aches and chills. Return with high fevers, difficulty breathing, worse or other concerns as discussed. - Billing Disposition and Condition Condition: IMPROVED Disposition: Home - Attestation Statements Document Initiated by Enrico: Yes Documenting Scribe: Lj Gupta Provider For Whom Enrico is Documenting (Include Credential): Leo Thakkar MD Scribe Attestation: I, Lj Gupta, scribed for Leo Thakkar MD on 08/18/18 at 1524. Scribe Documentation Reviewed: Yes Provider Attestation: The documentation as recorded by the Lj parada accurately reflects the service I personally performed and the decisions made by me, Leo Thakkar MD
[2018-08-18 09:14] VITALS: BP 109/91
[2018-08-18] MEDS ORDERED: predniSONE TAB* 20 MG PO ONE (09:15)
[2018-08-18] MEDS ORDERED: Ketorolac INJ* 30 MG/ML 1 ML VIAL IV PUSH ONE (09:15)
[2018-08-18] MEDS ORDERED: Albuterol/Ipratropium NEB.SOL* Albuterol 2.5 MG/Ipratropium 0.5 MG 3 ML INH ONE ×2 (09:15→10:45)
[2018-08-18 09:29] LABS: ABS Basophils 0 10^3/ul (0-0.2); ABS Eosinophils 0.1 10^3/ul (0-0.6); ABS Lymphocytes 1.7 10^3/ul (1.0-4.8); ABS Monocytes 0.7 10^3/ul (0-0.8); ABS Neutrophils 5.3 10^3/ul (1.5-7.7); ABS Nucleated RBC 0 10^3/ul; Eosinophil % 1.4 % (0-6); Hematocrit 46 % (42-52); Hemoglobin 15.8 g/dl (14.0-18.0); Lymphocyte % 21.7 % (25-47); Mean Corpuscular HGB Conc 34 g/dl (31-36); Mean Corpuscular Hemoglobin 32 pg (27-31); Mean Corpuscular Volume 95 fL (80-94); Mean Platelet Volume 7.5 um3 (7.4-10.4); Nucleated Red Blood Cells % 0; Platelet Count 273 10^3/ul (150-450); Red Blood Count 4.88 10^6/ul (4.00-5.40); Red Cell Distribution Width 14 % (10.5-15); White Blood Count 7.9 10^3/ul (3.5-10.8)
--- NOTE | 2018-08-18 09:41 | RAD ---
Indication: Cough, shortness of breath. 2 views of the chest including dual energy PA views are reviewed and compared to previous exam dated July 10, 2009. No mediastinal shift is noted. Heart is of normal size and configuration. Lung chapman are clear. IMPRESSION: No active cardiopulmonary disease is noted.
[2018-08-18 09:46] LABS: EGFR Non-African American 93.2 (>60)
[2018-08-18] MEDS ORDERED: NS 0.9% 1000 ML* 1,000 ML IV ONE (10:45)
== END 2018-08-18 11:38 | disposition home or self-care (01) ==
LOC: ED 09:02
DX: J11.1 Influenza due to unidentified influenza virus with other respiratory manifestations (principal); R06.00 Dyspnea, unspecified; R07.9 Chest pain, unspecified; R53.83 Other fatigue; F17.210 Nicotine dependence, cigarettes, uncomplicated; R06.02 Shortness of breath
CPT/HCPCS: 36415; 71046; 80053; 82803; 83605; 85025; 93005; 96361; 96374; 99283; A9270-GY; J1885; J7512

== ENCOUNTER 2019-06-14 10:09 | Emergency (ER) | payer MEDICAID, MEDICARE ==
[2019-06-14 10:26] VITALS: BP 139/90
--- NOTE | 2019-06-14 10:43 | UC ---
Complaint Male HPI - HPI Summary HPI Summary: 30 year old male with a history of nephrolithiasis presents with low back pain and suprapubic pressure, left sided abdominal discomfort, urinary frequency and cloudy urine over the past two days. - History of Current Complaint Chief Complaint: UCGU Stated Complaint: URINARY COMPLAINT Time Seen by Provider: 06/14/19 10:35 Hx Obtained From: Patient Onset/Duration: Sudden Onset, Lasting Days - 2 days Timing: Constant Pain Intensity: 6 Location: Suprapubic - bilateral Character: Colicy Aggravating Factor(s): Nothing Associated Signs And Symptoms: Positive: Back Pain, Vomiting(# Of Episodes =) - one. Negative: Fever - Allergies/Home Medications Allergies/Adverse Reactions: Allergies Allergy/AdvReac Type Severity Reaction Status Date / Time Penicillins Allergy Swelling Verified 06/14/19 10:23 Home Medications: Home Medications Omeprazole (Nf) [Prilosec (NF)] 40 mg PO DAILY 06/14/19 [History Confirmed 06/14] PMH/Surg Hx/FS Hx/Imm Hx GI/ History: Gastroesophageal Reflux - Surgical History Surgical History: Yes Surgery Procedure, Year, and Place: renal stent/litho - Family History Known Family History: Positive: Diabetes Negative: Hypertension - Social History Alcohol Use: None Substance Use Type: Marijuana Substance Use Comment - Amount & Last Used: Last week Smoking Status (MU): Heavy Every Day Tobacco Smoker Type: Cigarettes Amount Used/How Often: 1/2-3/4 PPD Length of Time of Smoking/Using Tobacco: Since Age 13 Household Exposure Type: Cigarettes Review of Systems All Other Systems Reviewed And Are Negative: Yes Constitutional: Negative: Fever, Chills, Fatigue Skin: Negative: Rash Eyes: Positive: Negative ENT: Negative: Sore Throat, Nasal Discharge Respiratory: Negative: Shortness Of Breath, Cough Cardiovascular: Negative: Palpitations, Chest Pain Gastrointestinal: Positive: Abdominal Pain, Vomiting - one episode Genitourinary: Positive: Urgency. Negative: Vaginal/Penile Burning, Vaginal/ Penile Itching, Vaginal/Penile Discharge, Vaginal/Penile Pain, Vaginal/Penile Tenderness Motor: Negative: Weakness Neurovascular: Positive: Negative Musculoskeletal: Positive: Negative Neurological: Positive: Negative Psychological: Positive: Negative Physical Exam Triage Information Reviewed: Yes Appearance: Well-Appearing, Pain Distress - mild Vital Signs: Initial Vital Signs Temp 98.2 F 06/14/19 10:19 Pulse 76 06/14/19 10:19 Resp 15 06/14/19 10:19 BP 139/90 06/14/19 10:19 Pulse Ox 100 06/14/19 10:19 Vital Signs Reviewed: Yes Eyes: Positive: Conjunctiva Clear ENT: Positive: Normal ENT inspection Neck: Positive: Supple, Nontender, No Lymphadenopathy Respiratory: Positive: Lungs clear, Normal breath sounds. Negative: Crackles, Rhonchi, Wheezing Cardiovascular: Positive: RRR, No Murmur Abdomen Description: Positive: CVA Tenderness (R), CVA Tenderness (L), Other: - mild left LQ tenderness to deep palpation.. Negative: Distended, Guarding Musculoskeletal Exam: Normal Neurological Exam: Normal Psychological Exam: Normal Skin Exam: Normal Diagnostics - Radiology No standard instances Radiology Interpretation Completed By: Radiologist Summary of Radiographic Findings: CT Abd/Pelvis. IMPRESSION: 1. A 6 MM CALCULUS IS SEEN AT THE LEFT URETEROVESICULAR JUNCTION. THERE IS MILD LEFT. HYDRONEPHROSIS WITH NO PERIRENAL STRANDING OR COLLECTION. 2. ADDITIONAL NONOBSTRUCTIVE RENAL CALCULI ARE SEEN BILATERALLY (UP TO 8 MM IN THE LEFT. SUPERIOR POLE). Complaint Male Course/Dx - Differential Dx/Diagnosis Provider Diagnosis: Ureteral stone with hydronephrosis Discharge - Sign-Out/Discharge Documenting (check all that apply): Patient Departure All imaging exams completed and their final reports reviewed: Yes - Discharge Plan Condition: Stable Disposition: HOME Prescriptions: Hydrocodone/Acetaminophen [Hydrocodone/Acetaminophen 5-325 mg] 1 tab PO Q6H PRN 5 Days #20 tab MDD 4 tabs PRN Reason: Pain - Severe Referrals: Mohit Arceo DO [Primary Care Provider] - Additional Instructions: Follow-up with your established urologist this week for kidney stone at your left ureteral junction with mild hydronephrosis and other kidney stones. - Billing Disposition and Condition Condition: STABLE Disposition: Home
== END 2019-06-14 11:44 | disposition home or self-care (01) ==
LOC: UCCORT 10:09
DX: N13.2 Hydronephrosis with renal and ureteral calculous obstruction (principal); Z87.442 Personal history of urinary calculi; K21.9 Gastro-esophageal reflux disease without esophagitis; F17.210 Nicotine dependence, cigarettes, uncomplicated
CPT/HCPCS: 74176; 81003; 99212; G0463

== ENCOUNTER → 2019-07-06 07:53 | Day surgery (SDC) | payer MEDICARE, MEDICAID ==
[~2019-07-06 07:53] MED LIST: Buffered Lidocaine 1% SYRIN* 1 ML/SYRINGE INTRADERM ONE; Dexamethasone IV* 4 MG/ML 1 ML (4 MG) ONE; EPHEDrine (Pressors)* 50 MG/ML VIAL ONE; Famotidine IV* 10 MG/ML 2 ML (20 mg) IV ONE; Famotidine IV* 10 MG/ML 2 ML (20 mg) ONE; Furosemide IV* 10 MG/ML 2 ML VIAL (20 MG) ONE; Glycopyrrolate IV* 0.2 MG/ML 1 ML VIAL ONE; Lactated Ringers 1000 ML Bag* 1,000 ML IV SCH; Levofloxacin 500 MG IVPREMIX(* 500 MG/100 ML BAG IVPB ONE; Lidocaine 2% PF * 5 ML VIAL ONE; Midazolam* 1 MG/ML 5 ML VIAL (5 MG) ONE; Ondansetron INJ* 2 MG/ML VIAL ONE; Propofol* 10 MG/ML 20 ML BTL ONE; fentaNYL* 50 MCG/ML 2 ML VIAL (100 MCG VIAL) ONE
[2019-07-06 12:48] VITALS: BP 136/80
--- NOTE | 2019-07-06 14:45 | OP ---
CC: Dr. Mohit Arceo; Dr. Ziegler * DATE OF OPERATION: 07/06/19 - [facility] DATE OF : 80 SURGEON: Dr. Ziegler. ANESTHESIOLOGIST: Dr. Hernandez. ANESTHESIA: General. PRE-OP DIAGNOSES: 1. Left renal calculus. 2. Left flank pain. POST-OP DIAGNOSES: 1. Left renal calculus. 2. Left flank pain. OPERATIVE PROCEDURE: Shock wave lithotripsy of left renal calculus. COMPLICATIONS: None. POSTOPERATIVE CONDITION: Stable. INDICATIONS: Bonny Chase is a 39-year-old gentleman who was evaluated for recurrent episodes of left flank pain. He has an approximately 8-mm calculus in the upper pole of the left kidney, and after a detailed discussion of procedure and risks, is now being brought in for shock wave lithotripsy. DESCRIPTION OF PROCEDURE: After induction of general anesthesia, the patient was placed on the lithotripsy table in supine position. The calculus was localized using fluoroscopy and shock wave lithotripsy was commenced at a rate of 60 shocks per minute. After the initial 300 shocks, there was a pause in lithotripsy for several minutes in an effort to minimize any potential trauma to the kidney. Lithotripsy was then resumed and periodic imaging revealed good localization and fragmentation. A total of 1400 shocks were administered. The patient tolerated the procedure satisfactorily and was transferred back to the recovery area in stable condition. [id number]/[facility] #: [id number] MTDD
== END | disposition home or self-care (01) ==
LOC: OR 07:53
PROVIDERS: ATTEND Urology
DX: N20.0 Calculus of kidney (principal); Z72.0 Tobacco use; K21.9 Gastro-esophageal reflux disease without esophagitis; F41.9 Anxiety disorder, unspecified; Z87.442 Personal history of urinary calculi
CPT/HCPCS: 74018; J1100; J1940; J1956; J2250; J2405; J2704; J3010

== ENCOUNTER 2022-11-19 18:05 | Observation (INO) ==
[2022-11-19 19:42] LABS: ABS Eosinophils 0.1 10^3/ul (0-0.6); ABS Lymphocytes 2.4 10^3/ul (1.0-4.8); ABS Neutrophils 5.2 10^3/ul (1.5-7.7); Eosinophil % 1.3 %; Hematocrit 46 % (42-52); Hemoglobin 15.3 g/dL (14.0-18.0); Lymphocyte % 27.1 %; Mean Corpuscular HGB Conc 34 g/dL (31-36); Mean Corpuscular Hemoglobin 32 pg (27-31); Mean Corpuscular Volume 94 fL (80-94); Mean Platelet Volume 7.5 fL (7.4-10.4); Platelet Count 228 10^3/uL (150-450); Red Blood Count 4.85 10^6 /uL (4.18-5.48); Red Cell Distribution Width 14 % (10-15); White Blood Count 8.7 10^3/uL (3.5-10.8)
[2022-11-19 20:12] LABS: Albumin 4.5 g/dL (3.2-5.2); Albumin/Globulin Ratio 1.9 (1-3); C Reactive Protein 2.59 mg/L (<8.01); Calcium 9.5 mg/dL (8.6-10.3); Globulin 2.4 g/dL (2-4); Potassium 4.2 mmol/L (3.5-5.0); Total Bilirubin 0.4 mg/dL (0.2-1.0); Total Protein 6.9 g/dL (6.4-8.9); eGFR CKD-EPI 88.9 (>60)
[2022-11-19] MEDS ORDERED: Lactated Ringers 1000 ml BAG 1,000 ML IV ONE (20:36)
[2022-11-19 20:37] LABS: Urine Appearance Cloudy; Urine Bilirubin 1+ (Negative); Urine Blood 1+ (Negative); Urine Color Amber; Urine Glucose Negative (Negative); Urine Ketones Trace (Negative); Urine Nitrite Negative (Negative); Urine Protein 2+(100 mg/dL) (Negative); Urine Specific Gravity 1.031 (1.002-1.030); Urine Urobilinogen Negative (Negative)
[2022-11-19 20:40] LABS: Urine Bacteria Absent (Absent); Urine Red Blood Cell 2+(6-10/hpf) (Absent); Urine White Blood Cell Trace(0-5/hpf) (Absent)
[2022-11-19] MEDS ORDERED: Morphine 4 MG/ML VIAL (1 ml) IV ONE (20:44)
[2022-11-19] MEDS ORDERED: Ondansetron 4 mg VIAL 2 MG/ML 2 ml VIAL IV ONE (20:45)
[2022-11-19] MEDS ORDERED: HYDROmorphone 1 MG/1 ML SYRINGE IV SLOW PU ONE (22:17)
[2022-11-20] MEDS ORDERED: cefTRIAXone 2 gm/50 mL D5W 2 GM/50 ML BAG IV ONE (08:26)
[2022-11-20] MEDS ORDERED: Ondansetron 4 mg VIAL 2 MG/ML 2 ml VIAL IV PRN (09:23)
[2022-11-20] MEDS ORDERED: Lactated Ringers 1000 ml BAG 1,000 ML IV ONE (09:24)
[2022-11-20 10:32] LABS: INR 1.12 (0.88-1.18)
[2022-11-20] MEDS ORDERED: Iohexol 180 (CONTRAST) 20 ML SDV IV ONE (13:22)
[2022-11-20] MEDS ORDERED: Naloxone 0.4 mg VIAL 0.4 mg/ml 1 ml VIAL IV PRN ×2 (14:17→17:48)
[2022-11-20] MEDS ORDERED: fentaNYL 100 mcg/2 ml 50 MCG/ML VIAL IV PRN ×2 (14:17→17:48)
[2022-11-20] MEDS ORDERED: fentaNYL 100 mcg/2 ml 50 MCG/ML VIAL ONE (14:26)
[2022-11-20] MEDS ORDERED: Midazolam 2 mg/2 ml VIAL 1 mg/ml 2 ml VIAL (2 mg) ONE (14:27)
[2022-11-20] MEDS ORDERED: Dexamethasone IV 4 MG/ML VIAL 1 ml VIAL ONE (14:32)
[2022-11-20] MEDS ORDERED: Lidocaine 2% PF 5 ML VIAL ONE (14:32)
[2022-11-20] MEDS ORDERED: Ondansetron 4 mg VIAL 2 MG/ML 2 ml VIAL ONE (14:32)
[2022-11-20] MEDS ORDERED: Propofol 10 MG/ML 20 ML BTL ONE (14:32)
[2022-11-20] MEDS ORDERED: Sodium Citrate/Citric Acid LIQ 15 ML UDC ONE (14:33)
[2022-11-20] MEDS ORDERED: Ketamine HCL 50 mg/ml 10 ml VIAL (500 MG) ONE (15:07)
[2022-11-20] MEDS ORDERED: Glycopyrrolate IV 0.2 MG/ML 1 ML VIAL ONE (15:16)
[2022-11-20] MEDS ORDERED: Lidocaine 2% JELLY 20 ML (for OR use) ONE (15:16)
[2022-11-20 16:38] VITALS: BP 119/79
[2022-11-21] MEDS ORDERED: Pantoprazole VIAL 40 MG VIAL IV SCH (09:00)
== END 2022-11-20 18:10 | disposition short-term general hospital (02) ==
LOC: EDHOLD 18:05 → ED 18:05 → EDHOLD 11-20 14:52 → UNDODISOB 11-20 17:40
PROVIDERS: ADMIT Hospitalist; ATTEND Hospitalist